=== PATIENT | male | born 1940 | race Caucasian/White ===

== ENCOUNTER 2018-09-12 16:57 | Emergency (ER) | payer MEDICARE, OTHER ==
[2018-09-12 17:25] VITALS: RESP 18
[2018-09-12 17:47] LABS: Anisocytosis Slight; Basophils # (A) 0.1 k/uL (0-0.2); Basophils % (A) 1 %; Eosinophils # (A) 0.4 k/uL (0-0.7); Eosinophils % (A) 3 %; HCT 41.5 % (39.0-53.0); HGB 12.6 gm/dL (13.0-17.5); Hypochromasia Slight; Lymphocytes # (A) 2.4 k/uL (1.0-4.8); Lymphocytes % (A) 21 %; MCH 31.3 pg (25.0-35.0); MCHC 30.4 g/dL (31.0-37.0); MCV 102.9 fL (80.0-100.0); Macrocytosis Moderate; Monocytes # (A) 0.7 k/uL (0-1.0); Monocytes % (A) 6 %; Neutrophils # (A) 7.6 k/uL (1.3-7.7); Neutrophils % (A) 65 %; Platelet Count 269 k/uL (150-450); RBC 4.04 m/uL (4.30-5.90); RDW 16.7 % (11.5-15.5); WBC 11.7 k/uL (3.8-10.6)
[2018-09-12 17:55] LABS: INR 3.2 (<1.2); Partial Thromboplastin Time 39.7 sec (22.0-30.0); Prothrombin Time 30.9 sec (9.0-12.0)
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
[2018-09-12 18:08] LABS: African American GFR (CKD) >90 (>60 ml/min/1.73 sqM); Anion Gap 9 mmol/L; Blood Urea Nitrogen 25 mg/dL (9-20); Calcium 9.2 mg/dL (8.4-10.2); Carbon Dioxide 28 mmol/L (22-30); Chloride 103 mmol/L (98-107); Glucose 99 mg/dL (74-99); Potassium 4.3 mmol/L (3.5-5.1); Sodium 140 mmol/L (137-145)
--- NOTE | 2018-09-12 18:14 | XR ---
EXAMINATION: XR chest 2V DATE AND TIME: 09/12/2018 5:45 PM CLINICAL INDICATION: PHH; Pain TECHNIQUE: Departmental protocol COMPARISON: None FINDINGS: The cardiac silhouette is moderately enlarged. Cardiac pacemaker and EKG leads noted. There is a reticular pattern of increased density bilaterally throughout the lungs, mild moderately s ilhouetting the pulmonary vasculature bilaterally. There are small bilateral pleural effusions eviden t, appearing greater in volume on the right. No pneumothorax. There is an ill-defined added opacity in the right upper lung zone measuring 3-4 cm. The skeletal structures and soft tissues are negative for acute findings. IMPRESSION: 1. Interstitial phase pulmonary edema, presumably cardiogenic etiology, with bilateral pleural effus ions. 2. Suspicious ill-defined 3-4 cm focal consolidative opacity within the right upper lung zone, for w hich six-week follow-up PA and lateral chest radiographs are recommended to prove resolution.
[2018-09-12] MEDS ORDERED: DEXTROSE 5% IN WATER 100 ML with AMIODARONE 150 MG IV ONE (18:41)
[2018-09-12] MEDS ORDERED: FUROSEMIDE 10 MG/ML 4 ML VIAL IV STA (19:06)
[2018-09-12 21:34] VITALS: BP 125/71; PULSE 72; TEMP 98.9
== END 2018-09-12 21:36 | disposition other institution (70) ==
LOC: EC 16:57
DX: T82.198A Other mechanical complication of other cardiac electronic device, initial encounter (principal); I11.0 Hypertensive heart disease with heart failure; I50.9 Heart failure, unspecified; I48.91 Unspecified atrial fibrillation; J44.9 Chronic obstructive pulmonary disease, unspecified; K21.9 Gastro-esophageal reflux disease without esophagitis; E78.5 Hyperlipidemia, unspecified; M10.9 Gout, unspecified; F32.9 Major depressive disorder, single episode, unspecified; Z95.810 Presence of automatic (implantable) cardiac defibrillator; Z95.818 Presence of other cardiac implants and grafts; Z87.891 Personal history of nicotine dependence; Z79.82 Long term (current) use of aspirin; Z79.01 Long term (current) use of anticoagulants; Z79.899 Other long term (current) drug therapy; Z88.6 Allergy status to analgesic agent; Z53.8 Procedure and treatment not carried out for other reasons
CPT/HCPCS: 36415; 93005; 83880; 80048; 84484; 85025; 85610; 85730; 71046; 99285; 96374; J1940

== ENCOUNTER 2021-10-20 23:25 | Inpatient (IN) | payer MEDICARE, OTHER ==
--- NOTE | 2021-10-21 00:06 | XR ---
EXAMINATION TYPE: XR chest 1V portable DATE OF EXAM: 10/20/2021 COMPARISON: NONE HISTORY: Chest pain. Short of breath TECHNIQUE: Single view FINDINGS: Heart is enlarged. There is pulmonary vascular congestion. There is some blunting of the co stophrenic angles and more on the right side. There is left axillary pacemaker. There are chest leads . IMPRESSION: There is pulmonary interstitial and airspace edema. This is consistent with congestive he art failure. Pleural effusions slightly increased and pulmonary congestion increased compared to old exam
[2021-10-21 00:08] LABS: Anisocytosis Slight; Basophils # (A) 0.1 k/uL (0-0.2); Basophils % (A) 0 %; Eosinophils # (A) 0.2 k/uL (0-0.7); Eosinophils % (A) 1 %; HCT 34.1 % (39.0-53.0); HGB 10.6 gm/dL (13.0-17.5); Hypochromasia Marked; Lymphocytes # (A) 2.7 k/uL (1.0-4.8); Lymphocytes % (A) 16 %; MCH 34.1 pg (25.0-35.0); MCHC 31.2 g/dL (31.0-37.0); Macrocytosis Marked; Mean Platelet Volume 10.3; Monocytes # (A) 0.6 k/uL (0-1.0); Monocytes % (A) 3 %; Neutrophils # (A) 13.2 k/uL (1.3-7.7); Neutrophils % (A) 76 %; Platelet Count 265 k/uL (150-450); RBC 3.12 m/uL (4.30-5.90); RDW 17.6 % (11.5-15.5); WBC 17.3 k/uL (3.8-10.6)
[2021-10-21 00:15] LABS: MCV 109.4 fL (80.0-100.0)
[2021-10-21 00:16] LABS: INR 1.2 (<1.2); Partial Thromboplastin Time 27.7 sec (22.0-30.0); Prothrombin Time 12.8 sec (9.0-12.0)
[2021-10-21 00:20] LABS: ALT 36 U/L (4-49); AST 57 U/L (17-59); African American GFR (CKD) >90 (>60 ml/min/1.73 sqM); Albumin 3.8 g/dL (3.5-5.0); Alkaline Phosphatase 194 U/L (38-126); Anion Gap 7 mmol/L; Blood Urea Nitrogen 16 mg/dL (9-20); Calcium 9.2 mg/dL (8.4-10.2); Carbon Dioxide 27 mmol/L (22-30); Chloride 105 mmol/L (98-107); Glucose 115 mg/dL (74-99); Non-African American GFR(CKD) 85 (>60 ml/min/1.73 sqM); Potassium 4.5 mmol/L (3.5-5.1); Sodium 139 mmol/L (137-145); Total Bilirubin 0.6 mg/dL (0.2-1.3); Total Protein 6.1 g/dL (6.3-8.2)
--- NOTE | 2021-10-21 01:04 | ED ---
SOB HPI - General Chief Complaint: Shortness of Breath Stated Complaint: DANIEL Time Seen by Provider: 10/20/21 23:51 Source: EMS Mode of arrival: EMS Limitations: no limitations - History of Present Illness Initial Comments: This patient is an 81-year-old man arriving by ambulance to be evaluated for shortness of breath. The patient's recent history notable for having been at [facility] where he usually gets his care for pneumonia. He states that that cleared up and he was at home doing relatively well until earlier today. He started having a little more cough. He tried to sleep and then the shortness of breath became much worse. His breathing is worse lying back. Patient has had some cough with clear sputum. Patient has not had chest pain. He has not noted fever or chills. No leg pain. No change in bowel movements or urination. MD Complaint: shortness of breath, cough -: hour(s) Consistency: constant Improves With: nothing, upright position Worsens With: lying flat Known History Of: COPD Associated Symptoms: cough Treatments Prior to Arrival: oxygen, NIPPV - Related Data Home Oxygen Therapy: No Home Medications Medication Instructions Recorded Confirmed Albuterol Inhaler [Ventolin Hfa 1 - 2 puff INHALATION RT-Q6H PRN 09/12/18 09/12/18 Inhaler] Albuterol Nebulized [Ventolin 2.5 mg INHALATION RT-QID PRN 09/12/18 09/12/18 Nebulized] Amitriptyline HCl [Elavil] 25 mg PO HS 09/12/18 09/12/18 Ascorbic Acid [Vitamin C] 1,500 mg PO DAILY 09/12/18 09/12/18 Aspirin EC [Ecotrin Low Dose] 81 mg PO DAILY 09/12/18 09/12/18 Atorvastatin [Lipitor] 80 mg PO HS 09/12/18 09/12/18 Furosemide [Lasix] 80 mg PO DAILY 09/12/18 09/12/18 Glucosamine Sulfate 500 mg PO DAILY 09/12/18 09/12/18 Ipratropium Nebulized [Atrovent 0.5 mg INHALATION RT-BID PRN 09/12/18 09/12/18 Nebulized 0.2 MG/ML] Magnesium Gluconate [Magonate] 500 mg PO BID 09/12/18 09/12/18 Methocarbamol [Robaxin] 500 mg PO DAILY 09/12/18 09/12/18 Omeprazole 40 mg PO Q12H 09/12/18 09/12/18 Potassium Chloride ER [K-Dur 20] 20 meq PO Q12H 09/12/18 09/12/18 Ranitidine HCl [Zantac] 150 mg PO BID 09/12/18 09/12/18 Sertraline [Zoloft] 50 mg PO HS 09/12/18 09/12/18 Sucralfate [Carafate] 1 gm PO ACHS 09/12/18 09/12/18 Vitamin B Complex 1 cap PO DAILY 09/12/18 09/12/18 Vitamin E (Dl,Tocopheryl Acet) 400 unit PO DAILY 09/12/18 09/12/18 [Vitamin E] Vits A,C,E/Lutein/Minerals 1 tab PO DAILY 09/12/18 09/12/18 [Ocuvite with Lutein Tablet] Warfarin [Coumadin] 5 mg PO SUMOWEFR 09/12/18 09/12/18 Warfarin [Coumadin] 7.5 mg PO TUTHSA 09/12/18 09/12/18 allopurinoL [Zyloprim] 300 mg PO DAILY 09/12/18 09/12/18 Allergies Allergy/AdvReac Type Severity Reaction Status Date / Time naproxen [From Naprosyn] AdvReac gi bleed Verified 09/12/18 18:36 Review of Systems ROS Statement: Those systems with pertinent positive or pertinent negative responses have been documented in the HPI. ROS Other: All systems not noted in ROS Statement are negative. Constitutional: Denies: fever, chills, weakness Respiratory: Reports: cough, dyspnea, wheezes. Denies: hemoptysis, stridor Cardiovascular: Reports: orthopnea. Denies: chest pain, palpitations, dyspnea on exertion, syncope Gastrointestinal: Denies: abdominal pain, vomiting, diarrhea Genitourinary: Denies: dysuria, hematuria Musculoskeletal: Denies: back pain Skin: Denies: rash Neurological: Denies: headache, weakness, numbness Past Medical History Past Medical History: Atrial Fibrillation, COPD, GERD/Reflux, Hyperlipidemia, Hypertension, Memory Impairment Additional Past Medical History / Comment(s): cardiac arrest, gout Past Surgical History: Heart Catheterization, Orthopedic Surgery Additional Past Surgical History / Comment(s): aicd Past Psychological History: Depression Past Alcohol Use History: Occasional Past Drug Use History: None Reported General Exam General appearance: alert, in distress Head exam: Present: atraumatic, normocephalic Eye exam: Present: normal appearance. Absent: scleral icterus, conjunctival injection Neck exam: Present: normal inspection Respiratory exam: Present: respiratory distress, rales, accessory muscle use. Absent: wheezes, rhonchi, stridor, decreased breath sounds Cardiovascular Exam: Present: regular rate, normal rhythm, normal heart sounds. Absent: systolic murmur, diastolic murmur, rubs, gallop GI/Abdominal exam: Present: soft. Absent: distended, tenderness, guarding, rebound, rigid, mass Extremities exam: Present: normal inspection, normal capillary refill. Absent: pedal edema, calf tenderness Back exam: Present: normal inspection. Absent: CVA tenderness (R), CVA tenderness (L) Neurological exam: Present: alert Skin exam: Present: warm, dry, intact, normal color. Absent: rash Course Vital Signs 10/20/21 10/20/21 10/20/21 23:25 23:31 23:41 Temperature 97 F L Pulse Rate 93 Respiratory 20 Rate Blood Pressure 115/69 O2 Sat by Pulse 91 L Oximetry Fraction of 100 Inspired Oxygen (FIO2) 10/20/21 10/21/21 10/21/21 23:49 04:03 04:55 Temperature Pulse Rate 85 Respiratory Rate Blood Pressure 115/78 O2 Sat by Pulse 99 Oximetry Fraction of 100 70 Inspired Oxygen (FIO2) Medical Decision Making - Lab Data Result diagrams: 10/20/21 23:55 10/20/21 23:55 Lab Results 10/20/21 10/20/21 10/20/21 Range/Units 23:55 23:55 23:55 WBC 17.3 H (3.8-10.6) k/uL RBC 3.12 L (4.30-5.90) m/uL Hgb 10.6 L (13.0-17.5) gm/dL Hct 34.1 L (39.0-53.0) % MCV 109.4 H (80.0-100.0) fL MCH 34.1 (25.0-35.0) pg MCHC 31.2 (31.0-37.0) g/dL RDW 17.6 H (11.5-15.5) % Plt Count 265 (150-450) k/uL MPV 10.3 Neutrophils % 76 % Lymphocytes % 16 % Monocytes % 3 % Eosinophils % 1 % Basophils % 0 % Neutrophils # 13.2 H (1.3-7.7) k/uL Lymphocytes # 2.7 (1.0-4.8) k/uL Monocytes # 0.6 (0-1.0) k/uL Eosinophils # 0.2 (0-0.7) k/uL Basophils # 0.1 (0-0.2) k/uL Hypochromasia Marked Anisocytosis Slight Macrocytosis Marked A PT 12.8 H (9.0-12.0) sec INR 1.2 H (<1.2) APTT 27.7 (22.0-30.0) sec Sodium 139 (137-145) mmol/L Potassium 4.5 (3.5-5.1) mmol/L Chloride 105 (98-107) mmol/L Carbon Dioxide 27 (22-30) mmol/L Anion Gap 7 mmol/L BUN 16 (9-20) mg/dL Creatinine 0.80 (0.66-1.25) mg/dL Est GFR (CKD-EPI)AfAm >90 (>60 ml/min/1.73 sqM) Est GFR (CKD-EPI)NonAf 85 (>60 ml/min/1.73 sqM) Glucose 115 H (74-99) mg/dL Plasma Lactic Acid Gordo (0.7-2.0) mmol/L Calcium 9.2 (8.4-10.2) mg/dL Total Bilirubin 0.6 (0.2-1.3) mg/dL AST 57 (17-59) U/L ALT 36 (4-49) U/L Alkaline Phosphatase 194 H (38-126) U/L Troponin I (0.000-0.034) ng/mL NT-Pro-B Natriuret Pep pg/mL Total Protein 6.1 L (6.3-8.2) g/dL Albumin 3.8 (3.5-5.0) g/dL 10/20/21 10/20/21 10/20/21 Range/Units 23:55 23:55 23:55 WBC (3.8-10.6) k/uL RBC (4.30-5.90) m/uL Hgb (13.0-17.5) gm/dL Hct (39.0-53.0) % MCV (80.0-100.0) fL MCH (25.0-35.0) pg MCHC (31.0-37.0) g/dL RDW (11.5-15.5) % Plt Count (150-450) k/uL MPV Neutrophils % % Lymphocytes % % Monocytes % % Eosinophils % % Basophils % % Neutrophils # (1.3-7.7) k/uL Lymphocytes # (1.0-4.8) k/uL Monocytes # (0-1.0) k/uL Eosinophils # (0-0.7) k/uL Basophils # (0-0.2) k/uL Hypochromasia Anisocytosis Macrocytosis PT (9.0-12.0) sec INR (<1.2) APTT (22.0-30.0) sec Sodium (137-145) mmol/L Potassium (3.5-5.1) mmol/L Chloride (98-107) mmol/L Carbon Dioxide (22-30) mmol/L Anion Gap mmol/L BUN (9-20) mg/dL Creatinine (0.66-1.25) mg/dL Est GFR (CKD-EPI)AfAm (>60 ml/min/1.73 sqM) Est GFR (CKD-EPI)NonAf (>60 ml/min/1.73 sqM) Glucose (74-99) mg/dL Plasma Lactic Acid Gordo 1.5 (0.7-2.0) mmol/L Calcium (8.4-10.2) mg/dL Total Bilirubin (0.2-1.3) mg/dL AST (17-59) U/L ALT (4-49) U/L Alkaline Phosphatase (38-126) U/L Troponin I <0.012 (0.000-0.034) ng/mL NT-Pro-B Natriuret Pep 2740 pg/mL Total Protein (6.3-8.2) g/dL Albumin (3.5-5.0) g/dL - EKG Data -: EKG Interpreted by Ri EKG shows normal: axis (Borderline left axis), intervals (Normal) Interpretation: nonspecific ST-T wave changes, other (Underlying rhythm appears to be atrial fibrillation with occasional PVC) Disposition
[2021-10-21] MEDS ORDERED: ALBUTEROL NEBULIZED 2.5 MG/3 ML INHALATION PRN (06:17)
[2021-10-21] MEDS: ASPIRIN 81 MG PO SCH (09:34)
[2021-10-21] MEDS: FAMOTIDINE 20 MG TAB PO SCH ×2 (09:34→19:59)
[2021-10-21] MEDS: POTASSIUM CHLORIDE ER 20 MEQ TAB.ER PO SCH ×2 (09:34→19:59)
[2021-10-21] MEDS: PANTOPRAZOLE 40 MG TABLET PO SCH ×2 (09:34→18:47)
[2021-10-21] MEDS: FUROSEMIDE 10 MG/ML 4 ML VIAL IV SCH ×2 (09:34→18:48)
[2021-10-21] MEDS: MAGNESIUM OXIDE 400 MG TAB PO SCH ×2 (09:35→19:59)
[2021-10-21] MEDS: SUCRALFATE 1 GM TAB PO SCH ×4 (11:15→19:59)
[2021-10-21 12:06] LABS: Appearance,Urine Clear (Clear); Bilirubin,Urine Negative (Negative); Blood,Urine Negative (Negative); Color,Urine Yellow; Glucose,Urine (UA) Negative (Negative); Hyaline Casts,Urine 3 /lpf (0-2); Ketones,Urine Negative (Negative); Leukocyte Esterase,Urine Trace (Negative); Mucus,Urine Rare /hpf; Nitrite,Urine Negative (Negative); PH, Urine 6.5 (5.0-8.0); Protein,Urine Trace (Negative); RBC,Urine <1 /hpf (0-5); Specific Gravity,Urine 1.017 (1.001-1.035); Squamous Epithelial Cell,Urine <1 /hpf (0-4); Urobilinogen,Urine <2.0 mg/dL (<2.0); WBC,Urine 1 /hpf (0-5)
[2021-10-21] MEDS ORDERED: AZITHROMYCIN 500 MG TAB PO STA (13:11)
--- NOTE | 2021-10-21 15:55 | P.CRDCN ---
History of Present Illness Consult date: 10/21/21 Chief complaint: Shortness of breath History of present illness: This is an 81-year-old gentleman with a known past medical history who presented to the emergency department not feeling well. The patient is a poor historian. He was very lethargic when he was seen and examined. The patient was brought apparently by ambulance. According to the chart he was not feeling well where he was experiencing symptoms of being tired and fatigued and has no energy and lately for the last few days he has been more short of breath and the shortness of breath was associated with cough. No evidence that the patient was experiencing any fever or chills. No evidence that he was experiencing chest pain or chest discomfort. He underwent a workup in the emergency department and he was diagnosed with heart failure. He was started on Lasix IV. When the patient was seen and examined he doesn't look in any overt congestive heart failure. He underwent an NT proBNP which came in to be around 2000. The chest x-ray showed findings consistent with pulmonary vascular congestions. The initial evaluation of the EKG showed atrial fibrillation but further local showed that the EKG showing what it seems to be multifocal atrial tachycardia. He also was started on antibiotic for possible underlying pneumonia. Most noticeable that the examination revealed diminished breathing sounds bilaterally with very harsh systolic murmur at the right and left upper sternal border. We will obtain an echocardiogram for further clarification Past Medical History Past Medical History: Atrial Fibrillation, COPD, GERD/Reflux, Hyperlipidemia, Hypertension, Memory Impairment Additional Past Medical History / Comment(s): cardiac arrest, gout Past Surgical History: Heart Catheterization, Orthopedic Surgery Additional Past Surgical History / Comment(s): aicd Past Psychological History: Depression Past Alcohol Use History: Occasional Past Drug Use History: None Reported Medications and Allergies Home Medications Medication Instructions Recorded Confirmed Type Atorvastatin [Lipitor] 80 mg PO HS 09/12/18 10/21/21 History Furosemide [Lasix] 80 mg PO DAILY 09/12/18 10/21/21 History Omeprazole 40 mg PO BID 09/12/18 10/21/21 History Potassium Chloride ER [K-Dur 20] 20 meq PO BID 09/12/18 10/21/21 History Sertraline [Zoloft] 50 mg PO HS 09/12/18 10/21/21 History allopurinoL [Zyloprim] 300 mg PO DAILY 09/12/18 10/21/21 History Clopidogrel [Plavix] 75 mg PO DAILY 10/21/21 10/21/21 History Metoprolol Succinate [Metoprolol 25 mg PO DAILY 10/21/21 10/21/21 History Succinate ER] QUEtiapine [SEROquel] 12.5 mg PO HS 10/21/21 10/21/21 History Vit C/E/Zn/Coppr/Lutein/Zeaxan 1 cap PO BID 10/21/21 10/21/21 History [Preservision Areds 2 Softgel] Allergies Allergy/AdvReac Type Severity Reaction Status Date / Time naproxen [From Naprosyn] AdvReac gi bleed Verified 10/21/21 11:25 Physical Exam Vitals: Vital Signs Temp Pulse Resp BP Pulse Ox FiO2 10/21/21 15:02 94 L 10/21/21 15:00 62 20 90/50 96 10/21/21 14:03 65 16 112/50 96 10/21/21 12:51 68 18 112/55 96 10/21/21 11:18 78 20 112/58 99 10/21/21 11:14 40 10/21/21 09:46 98.3 F 86 18 111/56 98 10/21/21 08:20 70 10/21/21 08:00 90 22 120/85 96 10/21/21 04:55 85 115/78 99 10/21/21 04:03 70 10/20/21 23:49 100 10/20/21 23:41 91 L 10/20/21 23:31 97 F L 93 20 115/69 10/20/21 23:25 100 Intake and Output 10/21/21 10/21/21 10/21/21 06:59 14:59 22:59 Other: Weight 79.379 kg - Constitutional General appearance: no acute distress - Respiratory Respiratory: bilateral: diminished - Cardiovascular Rhythm: irregularly irregular Heart sounds: normal: S1, S2 Results 10/20/21 23:55 10/20/21 23:55 Cardiac Enzymes 10/20/21 10/20/21 10/21/21 Range/Units 23:55 23:55 06:53 AST 57 (17-59) U/L Troponin I <0.012 <0.012 (0.000-0.034) ng/mL 10/21/21 Range/Units 09:53 AST (17-59) U/L Troponin I <0.012 (0.000-0.034) ng/mL Coagulation 10/20/21 Range/Units 23:55 PT 12.8 H (9.0-12.0) sec APTT 27.7 (22.0-30.0) sec CBC 10/20/21 Range/Units 23:55 WBC 17.3 H (3.8-10.6) k/uL RBC 3.12 L (4.30-5.90) m/uL Hgb 10.6 L (13.0-17.5) gm/dL Hct 34.1 L (39.0-53.0) % Plt Count 265 (150-450) k/uL Comprehensive Metabolic Panel 10/20/21 Range/Units 23:55 Sodium 139 (137-145) mmol/L Potassium 4.5 (3.5-5.1) mmol/L Chloride 105 (98-107) mmol/L Carbon Dioxide 27 (22-30) mmol/L BUN 16 (9-20) mg/dL Creatinine 0.80 (0.66-1.25) mg/dL Glucose 115 H (74-99) mg/dL Calcium 9.2 (8.4-10.2) mg/dL AST 57 (17-59) U/L ALT 36 (4-49) U/L Alkaline Phosphatase 194 H (38-126) U/L Total Protein 6.1 L (6.3-8.2) g/dL Albumin 3.8 (3.5-5.0) g/dL Current Medications Generic Name Dose Route Start Last Admin Trade Name Freq PRN Reason Stop Dose Admin Albuterol Sulfate 2.5 mg 10/21/21 06:17 Albuterol Nebulized 2.5 Mg/3 Ml INHALATION RT-QID PRN Shortness Of Breath Aspirin 81 mg 10/21/21 09:00 10/21/21 09:34 Aspirin 81 Mg PO 81 mg DAILY JENNIFER Administration Azithromycin 250 mg 10/22/21 09:00 Azithromycin 250 Mg Tab PO 10/24/21 09:01 DAILY [facility] Protocol Famotidine 20 mg 10/21/21 09:00 10/21/21 09:34 Famotidine 20 Mg Tab PO 20 mg BID JENNIFER Administration Furosemide 40 mg 10/21/21 07:00 10/21/21 09:34 Furosemide 10 Mg/Ml 4 Ml Vial IV 40 mg Q12H JENNIFER Administration Ceftriaxone Sodium 2 gm/ 50 mls @ 100 mls/hr 10/21/21 13:15 10/21/21 13:57 Sodium Chloride IVPB 100 mls/hr Q24HR JENNIFER Administration Protocol Magnesium Oxide 400 mg 10/21/21 09:00 10/21/21 09:35 Magnesium Oxide 400 Mg Tab PO 400 mg BID JENNIFER Administration Pantoprazole Sodium 40 mg 10/21/21 07:30 10/21/21 09:34 Pantoprazole 40 Mg Tablet PO 40 mg Q12H JENNIFER Administration Potassium Chloride 20 meq 10/21/21 09:00 10/21/21 09:34 Potassium Chloride Er 20 Meq Tab.Er PO 20 meq Q12H JENNIFER Administration Sodium Chloride 10 ml 10/21/21 09:00 10/21/21 09:35 Sodium Chloride 0.9% Flush 10 Ml Syringe IV 10 ml BID JENNIFER Administration Sucralfate 1 gm 10/21/21 07:30 10/21/21 13:37 Sucralfate 1 Gm Tab PO Not Given ACHS JENNIFER Intake and Output 10/21/21 10/21/21 10/21/21 06:59 14:59 22:59 Other: Weight 79.379 kg 10/20/21 23:55 10/20/21 23:55 Assessment and Plan Assessment: Assessment #1 possible underlying pneumonia #2 cardiac arrhythmia, atrial fibrillation versus multifocal atrial tachycardia #3 cardiac murmur was diminished in the intensity of S2 #3 multiple comorbid conditions Plan #1 continue the current medical regimen #2 obtain an echo to evaluate the ejection fraction as well as the intracardiac valves #3 continue IV diuretics for additional 24 hours #4 continue antibiotic #5 follow-up with the patient
--- NOTE | 2021-10-21 18:08 | P.HPIM ---
History of Present Illness H&P Date: 10/21/21 Chief Complaint: Shortness of breath 81-year-old man arriving by ambulance to be evaluated for shortness of breath. The patient's recent history notable for having been at [facility] where he usually gets his care for pneumonia. He states that that cleared up and he was at home doing relatively well until earlier today. He started having a little more cough. He tried to sleep and then the shortness of breath became much worse. His breathing is worse lying back. Patient has had some cough with clear sputum. Patient has not had chest pain. He has not noted fever or chills. No leg pain. No change in bowel movements or urination. Workup in the emergency department and he was diagnosed with heart failure. He was started on Lasix IV. When the patient was seen and examined he doesn't look in any overt congestive heart failure. He underwent an NT proBNP which came in to be around 2000. The chest x-ray showed findings consistent with pulmonary vascular congestions. The initial evaluation of the EKG showed atrial fibrillation but further local showed that the EKG showing what it seems to be multifocal atrial tachycardia. He also was started on antibiotic for possible underlying pneumonia. Most noticeable that the examination revealed diminished breathing sounds bilaterally with very harsh systolic murmur at the right and left upper sternal border. We will obtain an echocardiogram for further clarification Review of Systems REVIEW OF SYSTEMS: CONSTITUTIONAL: No fever, no malaise, no fatigue. HEENT: No recent visual problems or hearing problems. Denied any sore throat. CARDIOVASCULAR: No chest pain, orthopnea, PND, no palpitations, no syncope. PULMONARY: No shortness of breath, no cough, no hemoptysis. GASTROINTESTINAL: No diarrhea, no nausea, no vomiting, no abdominal pain. NEUROLOGICAL: No headaches, no weakness, no numbness. HEMATOLOGICAL: Denies any bleeding or petechiae. GENITOURINARY: Denies any burning micturition, frequency, or urgency. MUSCULOSKELETAL/RHEUMATOLOGICAL: Denies any joint pain, swelling, or any muscle pain. ENDOCRINE: Denies any polyuria or polydipsia. The rest of the 14-point review of systems is negative. Past Medical History Past Medical History: Atrial Fibrillation, COPD, GERD/Reflux, Hyperlipidemia, Hypertension, Memory Impairment Additional Past Medical History / Comment(s): cardiac arrest, gout Past Surgical History: Heart Catheterization, Orthopedic Surgery Additional Past Surgical History / Comment(s): aicd Past Psychological History: Depression Past Alcohol Use History: Occasional Past Drug Use History: None Reported - Past Family History Father Family Medical History: Diabetes Mellitus Mother Additional Family Medical History / Comment(s): brain bleed Medications and Allergies Home Medications Medication Instructions Recorded Confirmed Type Atorvastatin [Lipitor] 80 mg PO HS 09/12/18 10/21/21 History Furosemide [Lasix] 80 mg PO DAILY 09/12/18 10/21/21 History Omeprazole 40 mg PO BID 09/12/18 10/21/21 History Potassium Chloride ER [K-Dur 20] 20 meq PO BID 09/12/18 10/21/21 History Sertraline [Zoloft] 50 mg PO HS 09/12/18 10/21/21 History allopurinoL [Zyloprim] 300 mg PO DAILY 09/12/18 10/21/21 History Clopidogrel [Plavix] 75 mg PO DAILY 10/21/21 10/21/21 History Metoprolol Succinate [Metoprolol 25 mg PO DAILY 10/21/21 10/21/21 History Succinate ER] QUEtiapine [SEROquel] 12.5 mg PO HS 10/21/21 10/21/21 History Vit C/E/Zn/Coppr/Lutein/Zeaxan 1 cap PO BID 10/21/21 10/21/21 History [Preservision Areds 2 Softgel] Allergies Allergy/AdvReac Type Severity Reaction Status Date / Time naproxen [From Naprosyn] AdvReac gi bleed Verified 10/21/21 11:25 Physical Exam Vitals: Vital Signs Temp Pulse Resp BP Pulse Ox FiO2 10/21/21 08:20 70 10/21/21 04:55 85 115/78 99 10/21/21 04:03 70 10/20/21 23:49 100 10/20/21 23:41 91 L 10/20/21 23:31 97 F L 93 20 115/69 10/20/21 23:25 100 Intake and Output 10/20/21 10/21/21 10/21/21 22:59 06:59 14:59 Other: Weight 79.379 kg PHYSICAL EXAMINATION: GENERAL: The patient is alert and oriented x3, not in any acute distress. Well developed, well nourished. HEENT: Pupils are round and equally reacting to light. EOMI. No scleral icterus. No conjunctival pallor. Normocephalic, atraumatic. No pharyngeal erythema. No thyromegaly. CARDIOVASCULAR: S1 and S2 present. No murmurs, rubs, or gallops. PULMONARY: Chest is clear to auscultation, no wheezing or crackles. ABDOMEN: Soft, nontender, nondistended, normoactive bowel sounds. No palpable organomegaly. MUSCULOSKELETAL: No joint swelling or deformity. EXTREMITIES: No cyanosis, clubbing, or pedal edema. NEUROLOGICAL: Gross neurological examination did not reveal any focal deficits. SKIN: No rashes. Results CBC & Chem 7: 10/20/21 23:55 10/20/21 23:55 Labs: Abnormal Lab Results - Last 24 Hours (Table) 10/20/21 10/20/21 10/20/21 Range/Units 23:55 23:55 23:55 WBC 17.3 H (3.8-10.6) k/uL RBC 3.12 L (4.30-5.90) m/uL Hgb 10.6 L (13.0-17.5) gm/dL Hct 34.1 L (39.0-53.0) % MCV 109.4 H (80.0-100.0) fL RDW 17.6 H (11.5-15.5) % Neutrophils # 13.2 H (1.3-7.7) k/uL Macrocytosis Marked A PT 12.8 H (9.0-12.0) sec INR 1.2 H (<1.2) Glucose 115 H (74-99) mg/dL Alkaline Phosphatase 194 H (38-126) U/L Total Protein 6.1 L (6.3-8.2) g/dL Assessment and Plan Assessment: 1. Acute exacerbation CHF - Patient has been placed on Lasix 40 mg IV every 12 hours; we will monitor strict ISABEL's, daily weights, low salt and fluid restricted diet - Recommend 2-D echo - Cardiology is consulted 2. Possible underlying pneumonia; patient has been placed on IV Rocephin and azithromycin; we will monitor CBC, CRP antral calcitonin; order blood culture and sputum culture 3. Cardiac arrhythmia; atrial fibrillation versus MAT; patient has history of atrial fibrillation; patient is currently rate controlled on metoprolol 25 mg daily; not on anticoagulation therapy 4. Marked leukocytosis; likely related to possible pneumonia; monitor CBC; we will plan to change antibiotics and consult ID if WBC continues to trend up 5. Hypertension; metoprolol 25 mg daily 6. Hyperlipidemia; Lipitor 80 mg by mouth daily at bedtime 7. COPD; not in exacerbation; continue with home inhaler therapy 8. Gout; T new with allopurinol 300 mg daily 9. Depression/insomnia; Zoloft 50 mg by mouth daily at bedtime, Seroquel 12.5 mg daily at bedtime
[2021-10-21] MEDS: ATORVASTATIN 80 MG TAB PO SCH (19:59)
[2021-10-21] MEDS: SERTRALINE 50 MG TAB PO SCH (19:59)
[2021-10-21] MEDS: QUEtiapine 25 MG TAB PO SCH (19:59)
--- NOTE | 2021-10-21 20:48 | P.CONS ---
History of Present Illness - Reason for Consult Consult date: 10/21/21 Leukocytosis Requesting physician: Jairo Bryan - Chief Complaint Shortness of breath and cough x few days - History of Present Illness Patient is a 81-year-old male with a past medical history sniffing and for hypertension hyperlipidemia atrial fibrillation coronary artery disease presenting to the hospital for evaluation of increasing shortness of breath that apparently has been getting worse for the last few days patient also have a cough and is bringing up some purulent sputum denies having hemoptysis patient denies any pleuritic chest pain patient denies any nausea no vomiting no choking on the food no abdominal pain no diarrhea patient on presentation to the hospital was afebrile and no fever have been recorded subsequently patient was noted to be hypoxic and is currently requiring 4 L nasal cannula patient did have white count of 17.3 with a left shift kidney function has been normal liver enzymes are normal urine has been negative COVID testing was negative patient did have a chest x-ray pulmonary sedation any airspace edema concerning for CHF infectious disease was consulted for further management of antibiotic therapy especially his elevated white count Review of Systems Positive point has been mentioned in the HPI rest of the systems are negative Past Medical History Past Medical History: Atrial Fibrillation, COPD, GERD/Reflux, Hyperlipidemia, Hypertension, Memory Impairment Additional Past Medical History / Comment(s): cardiac arrest, gout Past Surgical History: Heart Catheterization, Orthopedic Surgery Additional Past Surgical History / Comment(s): aicd Past Psychological History: Depression Past Alcohol Use History: Occasional Past Drug Use History: None Reported - Past Family History Father Family Medical History: Diabetes Mellitus Mother Additional Family Medical History / Comment(s): brain bleed Medications and Allergies Home Medications Medication Instructions Recorded Confirmed Type Atorvastatin [Lipitor] 80 mg PO HS 09/12/18 10/21/21 History Furosemide [Lasix] 80 mg PO DAILY 09/12/18 10/21/21 History Omeprazole 40 mg PO BID 09/12/18 10/21/21 History Potassium Chloride ER [K-Dur 20] 20 meq PO BID 09/12/18 10/21/21 History Sertraline [Zoloft] 50 mg PO HS 09/12/18 10/21/21 History allopurinoL [Zyloprim] 300 mg PO DAILY 09/12/18 10/21/21 History Clopidogrel [Plavix] 75 mg PO DAILY 10/21/21 10/21/21 History Metoprolol Succinate [Metoprolol 25 mg PO DAILY 10/21/21 10/21/21 History Succinate ER] QUEtiapine [SEROquel] 12.5 mg PO HS 10/21/21 10/21/21 History Vit C/E/Zn/Coppr/Lutein/Zeaxan 1 cap PO BID 10/21/21 10/21/21 History [Preservision Areds 2 Softgel] Allergies Allergy/AdvReac Type Severity Reaction Status Date / Time naproxen [From Naprosyn] AdvReac gi bleed Verified 10/21/21 11:25 Physical Exam Vitals: Vital Signs Temp Pulse Resp BP Pulse Ox FiO2 10/21/21 11:18 78 20 112/58 99 10/21/21 11:14 40 10/21/21 09:46 98.3 F 86 18 111/56 98 10/21/21 08:20 70 10/21/21 04:55 85 115/78 99 10/21/21 04:03 70 10/20/21 23:49 100 10/20/21 23:41 91 L 10/20/21 23:31 97 F L 93 20 115/69 10/20/21 23:25 100 Intake and Output 10/20/21 10/21/21 10/21/21 22:59 06:59 14:59 Other: Weight 79.379 kg GENERAL DESCRIPTION: Elderly male lying in bed, no distress. No tachypnea or accessory muscle of respiration use. HEENT: Shows Pallor , no scleral icterus. Oral mucous membrane is dry. No pharyngeal erythema or thrush NECK: Trachea central, no thyromegaly. LUNGS: Unlabored breathing. Decreased breath sounds at the base. No wheeze or crackle. HEART: S1, S2, regular rate and rhythm. No loud murmur ABDOMEN: Soft, no tenderness , guarding or rigidity, no organomegaly EXTREMITIES: No edema of feet. SKIN: No rash, no masses palpable. NEUROLOGICAL: The patient is awake, alert, oriented x3, mood and affect normal. Results CBC & Chem 7: 10/20/21 23:55 10/20/21 23:55 Labs: Abnormal Lab Results - Last 24 Hours (Table) 10/20/21 10/20/21 10/20/21 Range/Units 23:55 23:55 23:55 WBC 17.3 H (3.8-10.6) k/uL RBC 3.12 L (4.30-5.90) m/uL Hgb 10.6 L (13.0-17.5) gm/dL Hct 34.1 L (39.0-53.0) % MCV 109.4 H (80.0-100.0) fL RDW 17.6 H (11.5-15.5) % Neutrophils # 13.2 H (1.3-7.7) k/uL Macrocytosis Marked A PT 12.8 H (9.0-12.0) sec INR 1.2 H (<1.2) Glucose 115 H (74-99) mg/dL Alkaline Phosphatase 194 H (38-126) U/L Total Protein 6.1 L (6.3-8.2) g/dL Urine Protein (Negative) Ur Leukocyte Esterase (Negative) Hyaline Casts (0-2) /lpf Urine Mucus (None) /hpf 10/21/21 Range/Units 11:06 WBC (3.8-10.6) k/uL RBC (4.30-5.90) m/uL Hgb (13.0-17.5) gm/dL Hct (39.0-53.0) % MCV (80.0-100.0) fL RDW (11.5-15.5) % Neutrophils # (1.3-7.7) k/uL Macrocytosis PT (9.0-12.0) sec INR (<1.2) Glucose (74-99) mg/dL Alkaline Phosphatase (38-126) U/L Total Protein (6.3-8.2) g/dL Urine Protein Trace H (Negative) Ur Leukocyte Esterase Trace H (Negative) Hyaline Casts 3 H (0-2) /lpf Urine Mucus Rare H (None) /hpf Assessment and Plan (1) Leukocytosis Current Visit: Yes Status: Acute Code(s): D72.829 - ELEVATED WHITE BLOOD CELL COUNT, UNSPECIFIED SNOMED Code(s): 797193767 Plan: 1patient with elevated white count in this patient presented to hospital with increasing shortness of breath the patient also have a cough and bringing some purulent sputum concerning for possible pneumonia. 2we will obtain a sputum for gram stain and culture and check a procalcitonin level. 3we will empirically add Rocephin and Zithromax while awaiting further work-up to be completed. We will follow on clinical condition and cultures to further adjust medication if needed Thank you for this consultation will follow this patient along with you Time with Patient: Greater than 30
[2021-10-22] MEDS: SUCRALFATE 1 GM TAB PO SCH ×4 (06:37→21:15)
[2021-10-22] MEDS: PANTOPRAZOLE 40 MG TABLET PO SCH ×2 (06:37→18:57)
[2021-10-22] MEDS: FUROSEMIDE 10 MG/ML 4 ML VIAL IV SCH (06:37)
--- NOTE | 2021-10-22 08:16 | P.PN ---
Subjective Progress Note Date: 10/22/21 Principal diagnosis: Shortness of breath This is an 81-year-old gentleman who sees a police crime scene technician at home [facility] who is somewhat a poor historian with a past medical history significant for permanent pacemaker as well as history of Collier permanent atrial fibrillation as well as multiple comorbid conditions presented to the hospital with shortness of breath. We consulted to see the patient mainly for the management of heart failure. When the patient was seen in the emergency department yesterday he did not look in overt heart failure. The picture was more consistent with pneumonia. The patient was kept on IV Lasix for the following day. An echocardiogram was ordered. On examination he was found to have harsh systolic murmur at the right upper sternal border with severe decrease in the intensity of S2. His NT proBNP came in to be elevated at 2000. The chest x-ray showed findings consistent with pulmonary vascular congestions. But clinically the patient was not in overt failure. The EKG showed an atrial fibrillation with a differential diagnosis of multifocal atrial tachycardia. The patient stated that he underwent in the past placement of the watchman device. The patient was seen this morning. His mentation somewhat better. He continues to be poor historian. He stated that his shortness of breath has improved. His pressure continues to be marginal. I'm going to decrease the dose of Lasix in the light of margin a low blood pressure. Currently he is on antibiotic for possible underlying pneumonia. An echocardiogram is in process to be done. Further recommendation to follow. Objective - Vital Signs Vital signs: Vital Signs Temp 98 F 10/22/21 03:31 Pulse 61 10/22/21 03:31 Resp 20 10/22/21 03:35 BP 92/52 10/22/21 03:31 Pulse Ox 98 10/22/21 03:35 FiO2 40 10/21/21 11:14 Intake & Output 10/21/21 10/22/21 10/22/21 18:59 06:59 18:59 Intake Total 1080 120 Output Total 1400 925 Balance -1400 155 120 Weight 79.379 kg 85.5 kg Intake: Oral 1080 120 Output: Urine 1400 925 Other: Voiding Method Urinal Urinal # Voids 1 - Constitutional General appearance: Present: no acute distress - Respiratory Respiratory: bilateral: diminished - Cardiovascular Rhythm: irregularly irregular Heart sounds: normal: S1, S2 - Labs CBC & Chem 7: 10/20/21 23:55 10/20/21 23:55 Labs: Abnormal Lab Results - Last 24 Hours (Table) 10/21/21 10/21/21 10/21/21 Range/Units 11:06 12:05 12:05 C-Reactive Protein 6.9 H (<1.0) mg/dL Procalcitonin 0.31 H (0.02-0.09) ng/mL Urine Protein Trace H (Negative) Ur Leukocyte Esterase Trace H (Negative) Hyaline Casts 3 H (0-2) /lpf Urine Mucus Rare H (None) /hpf Microbiology - Last 24 Hours (Table) 10/20/21 23:35 Blood Culture - Preliminary Blood No Growth after 24 hours 10/20/21 23:19 Blood Culture - Preliminary Blood No Growth after 24 hours Assessment and Plan Assessment: Assessment #1 possible underlying pneumonia #2 cardiac arrhythmia, atrial fibrillation versus multifocal atrial tachycardia #3 cardiac murmur was diminished in the intensity of S2 #3 permanent pacemaker #4 multiple and known cardiac abnormalities. The patient follows with a police crime scene technician at [facility] #5 marginal low blood pressure Plan #1 continue the current medical regimen #2 obtain an echo to evaluate the ejection fraction as well as the intracardiac valves #3 decrease the dose of IV Lasix in the light of low blood pressure #4 continue antibiotic #5 follow-up with the patient
[2021-10-22] MEDS ORDERED: ASPIRIN 325 MG TAB PO SCH (09:00)
[2021-10-22 09:54] LABS: African American GFR (CKD) >90 (>60 ml/min/1.73 sqM); Anion Gap 6 mmol/L; Blood Urea Nitrogen 23 mg/dL (9-20); Calcium 8.5 mg/dL (8.4-10.2); Carbon Dioxide 32 mmol/L (22-30); Chloride 99 mmol/L (98-107); Glucose 82 mg/dL (74-99); Non-African American GFR(CKD) 81 (>60 ml/min/1.73 sqM); Potassium 4.2 mmol/L (3.5-5.1); Sodium 137 mmol/L (137-145)
[2021-10-22 10:02] LABS: Anisocytosis Slight; Basophils % (A) 0 %; Eosinophils # (A) 0.1 k/uL (0-0.7); Eosinophils % (A) 1 %; HCT 29.2 % (39.0-53.0); Hypochromasia Marked; Lymphocytes # (A) 1.4 k/uL (1.0-4.8); Lymphocytes % (A) 12 %; MCH 33.2 pg (25.0-35.0); MCHC 30.3 g/dL (31.0-37.0); MCV 109.5 fL (80.0-100.0); Macrocytosis Marked; Mean Platelet Volume 11.3; Monocytes # (A) 0.6 k/uL (0-1.0); Monocytes % (A) 5 %; Neutrophils # (A) 9.1 k/uL (1.3-7.7); Neutrophils % (A) 80 %; Platelet Count 182 k/uL (150-450); RBC 2.67 m/uL (4.30-5.90); RDW 17.2 % (11.5-15.5); WBC 11.3 k/uL (3.8-10.6)
[2021-10-22 10:03] LABS: HGB 8.9 gm/dL (13.0-17.5)
[2021-10-22] MEDS: allopurinoL 300 MG TAB PO SCH (10:06)
[2021-10-22] MEDS: POTASSIUM CHLORIDE ER 20 MEQ TAB.ER PO SCH ×2 (10:06→21:08)
[2021-10-22] MEDS: FAMOTIDINE 20 MG TAB PO SCH ×2 (10:06→21:08)
[2021-10-22] MEDS: ASPIRIN 81 MG PO SCH (10:07)
[2021-10-22] MEDS: MAGNESIUM OXIDE 400 MG TAB PO SCH ×2 (10:07→21:08)
[2021-10-22] MEDS: CLOPIDOGREL 75 MG TAB PO SCH (10:07)
[2021-10-22] MEDS: AZITHROMYCIN 250 MG TAB PO SCH (10:07)
[2021-10-22] MEDS: METOPROLOL SUCCINATE (ER) 25 MG TAB.ER.24H PO SCH (10:07)
[2021-10-22 11:40] LABS: Poikilocytosis (M) Present
[2021-10-22] MEDS: FUROSEMIDE 10 MG/ML 2 ML VIAL IV SCH (18:57)
[2021-10-22] MEDS: QUEtiapine 25 MG TAB PO SCH (21:08)
[2021-10-22] MEDS: SERTRALINE 50 MG TAB PO SCH (21:08)
[2021-10-22] MEDS: ATORVASTATIN 80 MG TAB PO SCH (21:08)
[2021-10-23] MEDS: FUROSEMIDE 10 MG/ML 2 ML VIAL IV SCH ×2 (06:52→15:46)
[2021-10-23] MEDS: PANTOPRAZOLE 40 MG TABLET PO SCH ×2 (06:52→21:31)
[2021-10-23] MEDS: SUCRALFATE 1 GM TAB PO SCH ×4 (06:52→21:31)
--- NOTE | 2021-10-23 07:38 | P.PN ---
Subjective Progress Note Date: 10/22/21 Principal diagnosis: Leukocytosis Patient is a 81-year-old male with multiple comorbidities presenting to the hospital with increasing shortness of breath or cough sputum production did have elevated white count and concerning for pneumonia. On today's evaluation that is 10/22/2021, the patient denies having any fever or chills, the patient is breathing slightly comfortably, patient denies having any chest pain. The patient did have a cough with occasional sputum denies any abdominal pain and no diarrhea Objective - Vital Signs Vital signs: Vital Signs Temp 97.9 F 10/22/21 15:05 Pulse 55 L 10/22/21 15:05 Resp 16 10/22/21 15:05 BP 92/51 10/22/21 15:05 Pulse Ox 95 10/22/21 15:05 FiO2 40 10/21/21 11:14 Intake & Output 10/22/21 10/22/21 10/23/21 06:59 18:59 06:59 Intake Total 1080 480 Output Total 925 1500 Balance 155 -1020 Weight 85.5 kg Intake: Oral 1080 480 Output: Urine 925 1500 Other: Voiding Method Urinal Urinal # Voids 1 - Exam GENERAL DESCRIPTION: An elderly male lying in bed in no distress RESPIRATORY SYSTEM: Unlabored breathing , decreased breath sounds at bases HEART: S1 S2 regular rate and rhythm , ABDOMEN: Soft , no tenderness EXTREMITIES: No edema feet - Labs CBC & Chem 7: 10/22/21 08:37 10/22/21 08:37 Labs: Abnormal Lab Results - Last 24 Hours (Table) 10/22/21 10/22/21 10/22/21 Range/Units 08:37 08:37 08:37 WBC 11.3 H (3.8-10.6) k/uL RBC 2.67 L (4.30-5.90) m/uL Hgb 8.9 L D (13.0-17.5) gm/dL Hct 29.2 L (39.0-53.0) % MCV 109.5 H (80.0-100.0) fL MCHC 30.3 L (31.0-37.0) g/dL RDW 17.2 H (11.5-15.5) % Neutrophils # 9.1 H (1.3-7.7) k/uL Macrocytosis Marked A Carbon Dioxide 32 H (22-30) mmol/L BUN 23 H (9-20) mg/dL Procalcitonin 0.26 H (0.02-0.09) ng/mL Microbiology - Last 24 Hours (Table) 10/20/21 23:35 Blood Culture - Preliminary Blood No Growth after 24 hours 10/20/21 23:19 Blood Culture - Preliminary Blood No Growth after 24 hours Assessment and Plan (1) Leukocytosis Current Visit: Yes Status: Acute Code(s): D72.829 - ELEVATED WHITE BLOOD CELL COUNT, UNSPECIFIED SNOMED Code(s): 724889401 Plan: 1patient with elevated white count in this patient presented to hospital with increasing shortness of breath the patient also have a cough and bringing some purulent sputum concerning for possible pneumonia. 2 sputum for gram stain and culture has been requested has not been collected yet, procalcitonin is elevated . 3patient to continue with Rocephin and Zithromax while awaiting for the cultures to be finalize Time with Patient: Less than 30
[2021-10-23 07:59] LABS: African American GFR (CKD) >90 (>60 ml/min/1.73 sqM); Anion Gap 3 mmol/L; Blood Urea Nitrogen 24 mg/dL (9-20); Calcium 8.2 mg/dL (8.4-10.2); Carbon Dioxide 32 mmol/L (22-30); Chloride 102 mmol/L (98-107); Glucose 90 mg/dL (74-99); Non-African American GFR(CKD) 83 (>60 ml/min/1.73 sqM); Potassium 4.4 mmol/L (3.5-5.1); Sodium 137 mmol/L (137-145)
[2021-10-23 08:01] LABS: Anisocytosis Slight; Basophils % (A) 0 %; Eosinophils # (A) 0.1 k/uL (0-0.7); Eosinophils % (A) 1 %; HCT 29.7 % (39.0-53.0); Hypochromasia Marked; Lymphocytes # (A) 1.8 k/uL (1.0-4.8); Lymphocytes % (A) 17 %; MCH 33.3 pg (25.0-35.0); MCHC 30.3 g/dL (31.0-37.0); MCV 109.9 fL (80.0-100.0); Macrocytosis Marked; Mean Platelet Volume 10.7; Monocytes # (A) 0.6 k/uL (0-1.0); Monocytes % (A) 6 %; Neutrophils # (A) 7.8 k/uL (1.3-7.7); Neutrophils % (A) 73 %; Platelet Count 186 k/uL (150-450); RBC 2.71 m/uL (4.30-5.90); RDW 17.5 % (11.5-15.5); WBC 10.8 k/uL (3.8-10.6)
--- NOTE | 2021-10-23 09:55 | P.PN ---
Subjective Progress Note Date: 10/22/21 Principal diagnosis: Acute exacerbation CHF Possible underlying pneumonia Cardiac arrhythmia; atrial fibrillation versus MAT 81-year-old man arriving by ambulance to be evaluated for shortness of breath. The patient's recent history notable for having been at [facility] where he usually gets his care for pneumonia. He states that that cleared up and he was at home doing relatively well until earlier today. He started having a little more cough. He tried to sleep and then the shortness of breath became much worse. His breathing is worse lying back. Patient has had some cough with clear sputum. Patient has not had chest pain. He has not noted fever or chills. No leg pain. No change in bowel movements or urination. Workup in the emergency department and he was diagnosed with heart failure. He was started on Lasix IV. When the patient was seen and examined he doesn't look in any overt congestive heart failure. He underwent an NT proBNP which came in to be around 2000. The chest x-ray showed findings consistent with pulmonary vascular congestions. The initial evaluation of the EKG showed atrial fibrillation but further local showed that the EKG showing what it seems to be multifocal atrial tachycardia. He also was started on antibiotic for possible underlying pneumonia. Most noticeable that the examination revealed diminished breathing sounds bilaterally with very harsh systolic murmur at the right and left upper sternal border. We will obtain an echocardiogram for further clarification Objective - Vital Signs Vital signs: Vital Signs Temp 97.8 F 10/22/21 09:45 Pulse 58 L 10/22/21 09:45 Resp 16 10/22/21 09:45 BP 92/45 10/22/21 09:45 Pulse Ox 100 10/22/21 09:45 FiO2 40 10/21/21 11:14 Intake & Output 10/21/21 10/22/21 10/22/21 18:59 06:59 18:59 Intake Total 1080 120 Output Total 3849 334 2806 Balance -1400 155 -1080 Weight 79.379 kg 85.5 kg Intake: Oral 1080 120 Output: Urine 0829 005 1916 Other: Voiding Method Urinal Urinal Urinal # Voids 1 - Exam GENERAL: The patient is alert and oriented x3, not in any acute distress. Well developed, well nourished. HEENT: Pupils are round and equally reacting to light. EOMI. No scleral icterus. No conjunctival pallor. Normocephalic, atraumatic. No pharyngeal erythema. No thyromegaly. CARDIOVASCULAR: S1 and S2 present. No murmurs, rubs, or gallops. PULMONARY: Chest is clear to auscultation, no wheezing or crackles. ABDOMEN: Soft, nontender, nondistended, normoactive bowel sounds. No palpable organomegaly. MUSCULOSKELETAL: No joint swelling or deformity. EXTREMITIES: No cyanosis, clubbing, or pedal edema. NEUROLOGICAL: Gross neurological examination did not reveal any focal deficits. SKIN: No rashes. - Labs CBC & Chem 7: 10/23/21 06:45 10/23/21 06:45 Labs: Abnormal Lab Results - Last 24 Hours (Table) 10/21/21 10/21/21 10/21/21 Range/Units 11:06 12:05 12:05 WBC (3.8-10.6) k/uL RBC (4.30-5.90) m/uL Hgb (13.0-17.5) gm/dL Hct (39.0-53.0) % MCV (80.0-100.0) fL MCHC (31.0-37.0) g/dL RDW (11.5-15.5) % Macrocytosis Carbon Dioxide (22-30) mmol/L BUN (9-20) mg/dL C-Reactive Protein 6.9 H (<1.0) mg/dL Procalcitonin 0.31 H (0.02-0.09) ng/mL Urine Protein Trace H (Negative) Ur Leukocyte Esterase Trace H (Negative) Hyaline Casts 3 H (0-2) /lpf Urine Mucus Rare H (None) /hpf 10/22/21 10/22/21 Range/Units 08:37 08:37 WBC 11.3 H (3.8-10.6) k/uL RBC 2.67 L (4.30-5.90) m/uL Hgb 8.9 L D (13.0-17.5) gm/dL Hct 29.2 L (39.0-53.0) % MCV 109.5 H (80.0-100.0) fL MCHC 30.3 L (31.0-37.0) g/dL RDW 17.2 H (11.5-15.5) % Macrocytosis Marked A Carbon Dioxide 32 H (22-30) mmol/L BUN 23 H (9-20) mg/dL C-Reactive Protein (<1.0) mg/dL Procalcitonin (0.02-0.09) ng/mL Urine Protein (Negative) Ur Leukocyte Esterase (Negative) Hyaline Casts (0-2) /lpf Urine Mucus (None) /hpf Microbiology - Last 24 Hours (Table) 10/20/21 23:35 Blood Culture - Preliminary Blood No Growth after 24 hours 10/20/21 23:19 Blood Culture - Preliminary Blood No Growth after 24 hours Assessment and Plan Assessment: 1. Acute exacerbation CHF - Patient has been placed on Lasix 40 mg IV every 12 hours; we will monitor strict ISABEL's, daily weights, low salt and fluid restricted diet - Recommend 2-D echo - Cardiology is consulted 2. Possible underlying pneumonia; patient has been placed on IV Rocephin and azithromycin; we will monitor CBC, CRP antral calcitonin; order blood culture and sputum culture 3. Cardiac arrhythmia; atrial fibrillation versus MAT; patient has history of atrial fibrillation; patient is currently rate controlled on metoprolol 25 mg daily; not on anticoagulation therapy 4. Marked leukocytosis; likely related to possible pneumonia; monitor CBC; we will plan to change antibiotics and consult ID if WBC continues to trend up 5. Hypertension; metoprolol 25 mg daily 6. Hyperlipidemia; Lipitor 80 mg by mouth daily at bedtime 7. COPD; not in exacerbation; continue with home inhaler therapy 8. Gout; T new with allopurinol 300 mg daily 9. Depression/insomnia; Zoloft 50 mg by mouth daily at bedtime, Seroquel 12.5 mg daily at bedtime
[2021-10-23] MEDS: ASPIRIN 81 MG PO SCH (10:15)
[2021-10-23] MEDS: CLOPIDOGREL 75 MG TAB PO SCH (10:16)
[2021-10-23] MEDS: allopurinoL 300 MG TAB PO SCH (10:16)
[2021-10-23] MEDS: METOPROLOL SUCCINATE (ER) 25 MG TAB.ER.24H PO SCH (10:16)
[2021-10-23] MEDS: AZITHROMYCIN 250 MG TAB PO SCH (10:16)
[2021-10-23] MEDS: MAGNESIUM OXIDE 400 MG TAB PO SCH ×2 (10:17→21:31)
[2021-10-23] MEDS: POTASSIUM CHLORIDE ER 20 MEQ TAB.ER PO SCH ×2 (10:26→21:31)
[2021-10-23 12:42] VITALS: BMI 24.2
--- NOTE | 2021-10-23 13:44 | P.PN ---
Subjective Progress Note Date: 10/23/21 HISTORY OF PRESENT ILLNESS: This is an 81-year-old gentleman with a known past medical history who presented to the emergency department not feeling well. The patient is a poor historian. He was very lethargic when he was seen and examined. The patient was brought apparently by ambulance. According to the chart he was not feeling well where he was experiencing symptoms of being tired and fatigued and has no energy and lately for the last few days he has been more short of breath and the shortness of breath was associated with cough. No evidence that the patient was expe riencing any fever or chills. No evidence that he was experiencing chest pain or chest discomfort. He underwent a workup in the emergency department and he was diagnosed with heart failure. He was started on Lasix IV. When the patient was seen and examined he doesn't look in any overt congestive heart failure. He underwent an NT proBNP which came in to be around 2000. The chest x-ray showed findings consistent with pulmonary vascular congestions. The initial evaluation of the EKG showed atrial fibrillation but further local showed that the EKG showing what it seems to be multifocal atrial tachycardia. He also was started on antibiotic for possible underlying pneumonia. Most noticeable that the examination revealed diminished breathing sounds bilaterally with very harsh systolic murmur at the right and left upper sternal border. We will obtain an echocardiogram for further clarification 10/22/2021 The patient was seen this morning. His mentation somewhat better. He continues to be poor historian. He stated that his shortness of breath has improved. His pressure continues to be marginal. I'm going to decrease the dose of Lasix in the light of margin a low blood pressure. Currently he is on antibiotic for possible underlying pneumonia. An echocardiogram is in process to be done. Further recommendation to follow. 10/23/2021 Patient examined this morning at the bedside. Patient denies chest pain or pressure. He reports mild shortness of breath. Patient remains on IV Lasix. Telemetry reveals paced rhythm with underlying atrial fibrillation. Vital signs are stable. Blood pressure 150/63. PHYSICAL EXAM: VITAL SIGNS: Reviewed. GENERAL: Well-developed in no acute distress. NECK: Supple. No JVD or thyromegaly LUNGS: Respirations even and unlabored. Lungs diminished with bibasilar crackles. HEART: Regular rate and rhythm. S1 and S2 heard. Systolic murmur. EXTREMITIES: Normal range of motion. No clubbing or cyanosis. Peripheral pulses intact. Bilateral trace lower extremity edema ASSESSMENT: Possible pneumonia Acute on chronic heart failure, type unknown, echo pending Persistent atrial fibrillation, with history of Watchman procedure Systolic murmur History of pacemaker implantation PLAN: 2D echo ordered. Await results. Continue IV lasix Daily weights Accurate I&O Monitor kidney function Further recommendations pending patient course Obtain records from patient's primary v[facility] to further investigate the reason the patient is on Plavix outpatient Patient to follow up outpatient with his primary [facility] out of [facility] Nurse practitioner note has been reviewed by physician. Signing provider agrees with the documented findings, assessment, and plan of care. Objective - Vital Signs Vital signs: Vital Signs Temp 97.9 F 10/23/21 12:00 Pulse 64 10/23/21 12:00 Resp 16 10/23/21 12:00 BP 115/63 10/23/21 12:00 Pulse Ox 97 10/23/21 12:00 FiO2 40 10/21/21 11:14 Intake & Output 10/22/21 10/23/21 10/23/21 18:59 06:59 18:59 Intake Total 480 598 Output Total 1500 1475 1080 Balance -1020 -1475 -482 Weight 80.9 kg 80.9 kg Intake: Oral 480 598 Output: Urine 1500 1475 1080 Other: Voiding Method Urinal Urinal Urinal # Bowel Movements 1 - Labs CBC & Chem 7: 10/23/21 06:45 10/23/21 06:45 Labs: Abnormal Lab Results - Last 24 Hours (Table) 10/22/21 10/23/21 10/23/21 Range/Units 08:37 06:45 06:45 WBC 10.8 H (3.8-10.6) k/uL RBC 2.71 L (4.30-5.90) m/uL Hgb 9.0 L (13.0-17.5) gm/dL Hct 29.7 L (39.0-53.0) % MCV 109.9 H (80.0-100.0) fL MCHC 30.3 L (31.0-37.0) g/dL RDW 17.5 H (11.5-15.5) % Neutrophils # 7.8 H (1.3-7.7) k/uL Macrocytosis Marked A Carbon Dioxide 32 H (22-30) mmol/L BUN 24 H (9-20) mg/dL Calcium 8.2 L (8.4-10.2) mg/dL Procalcitonin 0.26 H (0.02-0.09) ng/mL Microbiology - Last 24 Hours (Table) 10/20/21 23:35 Blood Culture - Preliminary Blood No Growth after 48 hours 10/20/21 23:19 Blood Culture - Preliminary Blood No Growth after 48 hours
--- NOTE | 2021-10-23 14:16 | P.PN ---
Subjective Progress Note Date: 10/23/21 Principal diagnosis: Acute exacerbation CHF Possible underlying pneumonia Cardiac arrhythmia; atrial fibrillation versus MAT 81-year-old man arriving by ambulance to be evaluated for shortness of breath. The patient's recent history notable for having been at [facility] where he usually gets his care for pneumonia. He states that that cleared up and he was at home doing relatively well until earlier today. He started having a little more cough. He tried to sleep and then the shortness of breath became much worse. His breathing is worse lying back. Patient has had some cough with clear sputum. Patient has not had chest pain. He has not noted fever or chills. No leg pain. No change in bowel movements or urination. Workup in the emergency department and he was diagnosed with heart failure. He was started on Lasix IV. When the patient was seen and examined he doesn't look in any overt congestive heart failure. He underwent an NT proBNP which came in to be around 2000. The chest x-ray showed findings consistent with pulmonary vascular congestions. The initial evaluation of the EKG showed atrial fibrillation but further local showed that the EKG showing what it seems to be multifocal atrial tachycardia. He also was started on antibiotic for possible underlying pneumonia. Most noticeable that the examination revealed diminished breathing sounds bilaterally with very harsh systolic murmur at the right and left upper sternal border. We will obtain an echocardiogram for further clarification 10/23/2021 Patient is seen and evaluated resting in bed; continues to report difficulty breathing; denies any complaint of chest pain Vital signs are reviewed; blood pressure is slightly elevated at 150/63; telemetry reveals paced rhythm with underlying atrial fibrillation Patient remains on IV antibiotics in form of IV Rocephin and azithromycin for possible pneumonia; cardiology recommending to continue with IV Lasix at this time; we will continue to monitor strict ISABEL's and daily weights and will monitor renal function and electrolytes; low-salt and fluid restricted diet; echocardiogram is ordered and pending Objective - Vital Signs Vital signs: Vital Signs Temp 98.1 F 10/23/21 04:25 Pulse 63 10/23/21 04:25 Resp 18 10/23/21 04:25 BP 93/60 10/23/21 04:25 Pulse Ox 97 10/23/21 08:11 FiO2 40 10/21/21 11:14 Intake & Output 10/22/21 10/23/21 10/23/21 18:59 06:59 18:59 Intake Total 480 358 Output Total 1500 1475 600 Balance -1020 -6755 -049 Weight 80.9 kg Intake: Oral 480 358 Output: Urine 1500 1475 600 Other: Voiding Method Urinal Urinal # Bowel Movements 1 - Exam GENERAL: The patient is alert and oriented x3, not in any acute distress. Well developed, well nourished. HEENT: Pupils are round and equally reacting to light. EOMI. No scleral icterus. No conjunctival pallor. Normocephalic, atraumatic. No pharyngeal erythema. No thyromegaly. CARDIOVASCULAR: S1 and S2 present. No murmurs, rubs, or gallops. PULMONARY: Chest is clear to auscultation, no wheezing or crackles. ABDOMEN: Soft, nontender, nondistended, normoactive bowel sounds. No palpable organomegaly. MUSCULOSKELETAL: No joint swelling or deformity. EXTREMITIES: No cyanosis, clubbing, or pedal edema. NEUROLOGICAL: Gross neurological examination did not reveal any focal deficits. SKIN: No rashes. - Labs CBC & Chem 7: 10/23/21 06:45 10/23/21 06:45 Labs: Abnormal Lab Results - Last 24 Hours (Table) 10/22/21 10/22/21 10/23/21 Range/Units 08:37 08:37 06:45 WBC 11.3 H 10.8 H (3.8-10.6) k/uL RBC 2.67 L 2.71 L (4.30-5.90) m/uL Hgb 8.9 L D 9.0 L (13.0-17.5) gm/dL Hct 29.2 L 29.7 L (39.0-53.0) % MCV 109.5 H 109.9 H (80.0-100.0) fL MCHC 30.3 L 30.3 L (31.0-37.0) g/dL RDW 17.2 H 17.5 H (11.5-15.5) % Neutrophils # 9.1 H 7.8 H (1.3-7.7) k/uL Macrocytosis Marked A Marked A Carbon Dioxide (22-30) mmol/L BUN (9-20) mg/dL Calcium (8.4-10.2) mg/dL Procalcitonin 0.26 H (0.02-0.09) ng/mL 10/23/21 Range/Units 06:45 WBC (3.8-10.6) k/uL RBC (4.30-5.90) m/uL Hgb (13.0-17.5) gm/dL Hct (39.0-53.0) % MCV (80.0-100.0) fL MCHC (31.0-37.0) g/dL RDW (11.5-15.5) % Neutrophils # (1.3-7.7) k/uL Macrocytosis Carbon Dioxide 32 H (22-30) mmol/L BUN 24 H (9-20) mg/dL Calcium 8.2 L (8.4-10.2) mg/dL Procalcitonin (0.02-0.09) ng/mL Microbiology - Last 24 Hours (Table) 10/20/21 23:35 Blood Culture - Preliminary Blood No Growth after 48 hours 10/20/21 23:19 Blood Culture - Preliminary Blood No Growth after 48 hours Assessment and Plan Assessment: 1. Acute exacerbation CHF - Patient has been placed on Lasix 40 mg IV every 12 hours; we will monitor strict ISABEL's, daily weights, low salt and fluid restricted diet - Recommend 2-D echo - Cardiology is consulted 2. Possible underlying pneumonia; patient has been placed on IV Rocephin and azithromycin; we will monitor CBC, CRP antral calcitonin; order blood culture and sputum culture 3. Cardiac arrhythmia; atrial fibrillation versus MAT; patient has history of atrial fibrillation; patient is currently rate controlled on metoprolol 25 mg daily; not on anticoagulation therapy 4. Marked leukocytosis; likely related to possible pneumonia; monitor CBC; we will plan to change antibiotics and consult ID if WBC continues to trend up 5. Hypertension; metoprolol 25 mg daily 6. Hyperlipidemia; Lipitor 80 mg by mouth daily at bedtime 7. COPD; not in exacerbation; continue with home inhaler therapy 8. Gout; T new with allopurinol 300 mg daily 9. Depression/insomnia; Zoloft 50 mg by mouth daily at bedtime, Seroquel 12.5 mg daily at bedtime
--- NOTE | 2021-10-23 17:06 | CA ---
Transthoracic Echo Report Name: Chaitanya Ardon Age: 81 Gender: M : 1940 Exam Date: 10/23/2021 11:33 Exam Location: [facility] Ht (in): 72 Wt (lb): 178 Ordering Physician: Jasmyn Kapadia Attending/Referring Phys: [id number], Kang Bleacher [employer] Estella Bowers, [id number] Procedure CPT: Indications: LV function Cardiac Hx: Technical Quality: Fair Contrast 1: Total Dose (mL): Contrast 2: Total Dose (mL): MEASUREMENTS (Male / Female) Normal Values 2D ECHO LV Diastolic Diameter PLAX 5.0 cm 4.2 - 5.9 / 3.9 - 5.3 cm LV Systolic Diameter PLAX 3.0 cm IVS Diastolic Thickness 1.2 cm 0.6 - 1.0 / 0.6 - 0.9 cm LVPW Diastolic Thickness 1.2 cm 0.6 - 1.0 / 0.6 - 0.9 cm LV Relative Wall Thickness 0.5 RV Internal Dim ED PLAX 3.5 cm LA Systolic Diameter LX 4.5 cm 3.0 - 4.0 / 2.7 - 3.8 cm M-MODE Aortic Root Diameter MM 3.2 cm MV E Point Septal Separation 0.4 cm DOPPLER AV Peak Velocity 278.7 cm/s AV Peak Gradient 31.1 mmHg AV Mean Velocity 239.8 cm/s AV Mean Gradient 25.6 mmHg AV Velocity Time Integral 101.2 cm AI Peak Velocity 336.2 cm/s AI Peak Gradient 45.2 mmHg AI Pressure Half Time 637.2 ms LVOT Peak Velocity 53.0 cm/s LVOT Peak Gradient 1.1 mmHg TR Peak Velocity 367.2 cm/s TR Peak Gradient 53.9 mmHg Right Ventricular Systolic Press 58.9 mmHg FINDINGS Left Ventricle Left ventricular ejection fraction is estimated at 40-45 %. Left ventricular cavity size normal. Borderline left ventricular hypertrophy. Flattening of ventricular septum in systole and diastole Right Ventricle Mild right ventricular dilatation. Severe pulmonary hypertension. Right Atrium Normal right atrial size. Left Atrium Moderate left atrial dilatation. No evidence for an atrial septal defect. Mitral Valve Mitral valve thickened. Mild mitral annular calcification. Mild mitral regurgitation. Aortic Valve Moderate aortic stenosis with a peak gradient of 31 mmHg and a mean gradient of 26focal thickening of the aortic valve cusps. mmHg. Trileaflet aortic valve. Tricuspid Valve [id number] tricuspid regurgitation. Pulmonic Valve Trace pulmonic regurgitation. Pericardium Normal pericardium. No pericardial effusion. Aorta Normal size aortic root and proximal ascending aorta. CONCLUSIONS LV systolic dysfunction with an ejection fraction of 40-45% Severe pulmonary hypertension Mild to moderate tricuspid regurgitation Moderate aortic stenosis Mild mitral regurgitation Consider transesophageal echo for more optimal evaluation of mitral and aortic valve disease Previewed by: Dr. Mukul Ang MD (Electronically Signed) Final Date: 23 October 2021 17:05
[2021-10-23] MEDS: FAMOTIDINE 20 MG TAB PO SCH ×2 (20:54→21:31)
[2021-10-23] MEDS: QUEtiapine 25 MG TAB PO SCH (21:31)
[2021-10-23] MEDS: ATORVASTATIN 80 MG TAB PO SCH (21:31)
[2021-10-23] MEDS: SERTRALINE 50 MG TAB PO SCH (21:31)
--- NOTE | 2021-10-23 23:05 | P.PN ---
Subjective Progress Note Date: 10/23/21 Principal diagnosis: Leukocytosis Patient is a 81-year-old male with multiple comorbidities presenting to the hospital with increasing shortness of breath or cough sputum production did have elevated white count and concerning for pneumonia. On today's evaluation that is 10/23/2021, the patient remains to be afebrile, the patient is breathing comfortably on his cannula oxygen, patient denies having any chest pain. The patient continue have a cough with occasional s putum, the patient denies any abdominal pain and no diarrhea Objective - Vital Signs Vital signs: Vital Signs Temp 97.9 F 10/23/21 12:00 Pulse 64 10/23/21 12:00 Resp 16 10/23/21 12:00 BP 115/63 10/23/21 12:00 Pulse Ox 97 10/23/21 12:00 FiO2 40 10/21/21 11:14 Intake & Output 10/22/21 10/23/21 10/23/21 18:59 06:59 18:59 Intake Total 480 598 Output Total 1500 1475 1080 [facility] -1020 -1475 -482 Weight 80.9 kg 80.9 kg Intake: Oral 480 598 Output: Urine 1500 1475 1080 Other: Voiding Method Urinal Urinal # Bowel Movements 1 - Exam GENERAL DESCRIPTION: An elderly male lying in bed in no distress RESPIRATORY SYSTEM: Unlabored breathing , decreased breath sounds at bases HEART: S1 S2 regular rate and rhythm , ABDOMEN: Soft , no tenderness EXTREMITIES: No edema feet - Labs CBC & Chem 7: 10/23/21 06:45 10/23/21 06:45 Labs: Abnormal Lab Results - Last 24 Hours (Table) 10/22/21 10/23/21 10/23/21 Range/Units 08:37 06:45 06:45 WBC 10.8 H (3.8-10.6) k/uL RBC 2.71 L (4.30-5.90) m/uL Hgb 9.0 L (13.0-17.5) gm/dL Hct 29.7 L (39.0-53.0) % MCV 109.9 H (80.0-100.0) fL MCHC 30.3 L (31.0-37.0) g/dL RDW 17.5 H (11.5-15.5) % Neutrophils # 7.8 H (1.3-7.7) k/uL Macrocytosis Marked A Carbon Dioxide 32 H (22-30) mmol/L BUN 24 H (9-20) mg/dL Calcium 8.2 L (8.4-10.2) mg/dL Procalcitonin 0.26 H (0.02-0.09) ng/mL Microbiology - Last 24 Hours (Table) 10/20/21 23:35 Blood Culture - Preliminary Blood No Growth after 48 hours 10/20/21 23:19 Blood Culture - Preliminary Blood No Growth after 48 hours Assessment and Plan (1) Leukocytosis Current Visit: Yes Status: Acute Code(s): D72.829 - ELEVATED WHITE BLOOD CELL COUNT, UNSPECIFIED SNOMED Code(s): 731021719 Plan: 1patient with elevated white count in this patient presented to hospital with i ncreasing shortness of breath the patient also have a cough and bringing some purulent sputum concerning for possible pneumonia. 2 sputum for gram stain and culture has been requested has not been collected yet, procalcitonin is mildly elevated . 3patient has shown clinical improvement and will continue with Rocephin and Zithromax while awaiting for the cultures to be finalize Time with Patient: Less than 30
[2021-10-24] MEDS: SUCRALFATE 1 GM TAB PO SCH ×4 (06:23→22:05)
[2021-10-24] MEDS: FUROSEMIDE 10 MG/ML 2 ML VIAL IV SCH ×2 (06:23→22:05)
[2021-10-24] MEDS: PANTOPRAZOLE 40 MG TABLET PO SCH ×2 (06:23→22:04)
[2021-10-24] MEDS ORDERED: FUROSEMIDE 10 MG/ML 2 ML VIAL IV SCH (09:12)
[2021-10-24] MEDS: FAMOTIDINE 20 MG TAB PO SCH ×2 (09:22→22:04)
[2021-10-24] MEDS: MAGNESIUM OXIDE 400 MG TAB PO SCH ×2 (09:22→22:05)
[2021-10-24] MEDS: allopurinoL 300 MG TAB PO SCH (09:22)
[2021-10-24] MEDS: ASPIRIN 81 MG PO SCH (09:22)
[2021-10-24] MEDS: POTASSIUM CHLORIDE ER 20 MEQ TAB.ER PO SCH ×2 (09:22→22:05)
[2021-10-24] MEDS: CLOPIDOGREL 75 MG TAB PO SCH (09:22)
[2021-10-24] MEDS: AZITHROMYCIN 250 MG TAB PO SCH (09:23)
[2021-10-24 09:38] LABS: Anisocytosis Slight; HCT 31.3 % (39.0-53.0); HGB 9.5 gm/dL (13.0-17.5); Hypochromasia Marked; MCH 33.4 pg (25.0-35.0); MCHC 30.5 g/dL (31.0-37.0); MCV 109.7 fL (80.0-100.0); Macrocytosis Marked; Mean Platelet Volume 10.8; Platelet Count 215 k/uL (150-450); RBC 2.85 m/uL (4.30-5.90); RDW 17.3 % (11.5-15.5); WBC 8.9 k/uL (3.8-10.6)
[2021-10-24 10:05] LABS: African American GFR (CKD) >90 (>60 ml/min/1.73 sqM); Anion Gap 5 mmol/L; Blood Urea Nitrogen 22 mg/dL (9-20); Calcium 8.4 mg/dL (8.4-10.2); Carbon Dioxide 35 mmol/L (22-30); Chloride 97 mmol/L (98-107); Glucose 65 mg/dL (74-99); Non-African American GFR(CKD) 86 (>60 ml/min/1.73 sqM); Potassium 3.9 mmol/L (3.5-5.1); Sodium 137 mmol/L (137-145)
[2021-10-24 10:18] LABS: Eosinophils # (M) 0.18 k/uL (0-0.7); Lymphocytes # (M) 2.76 k/uL (1.0-4.8); Metamyelocytes # (M) 0.18 k/uL (0); Metamyelocytes % 2 %; Myelocytes # (M) 0.09 k/uL (0); Myelocytes % 1 %; Neutrophils % (M) 55 %; Nucleated Red Blood Cells 0 /100 WBC (0-0); Stomatocytes Present; Total Cells Counted 100
[2021-10-24 10:19] LABS: Ovalocytes Present
--- NOTE | 2021-10-24 11:39 | P.PN ---
Subjective Progress Note Date: 10/24/21 HISTORY OF PRESENT ILLNESS: This is an 81-year-old gentleman with a known past medical history who presented to the emergency department not feeling well. The patient is a poor historian. He was very lethargic when he was seen and examined. The patient was brought apparently by ambulance. According to the chart he was not feeling well where he was experiencing symptoms of being tired and fatigued and has no energy and lately for the last few days he has been more short of breath and the shortness of breath was associated with cough. No evidence that the patient was expe riencing any fever or chills. No evidence that he was experiencing chest pain or chest discomfort. He underwent a workup in the emergency department and he was diagnosed with heart failure. He was started on Lasix IV. When the patient was seen and examined he doesn't look in any overt congestive heart failure. He underwent an NT proBNP which came in to be around 2000. The chest x-ray showed findings consistent with pulmonary vascular congestions. The initial evaluation of the EKG showed atrial fibrillation but further local showed that the EKG showing what it seems to be multifocal atrial tachycardia. He also was started on antibiotic for possible underlying pneumonia. Most noticeable that the examination revealed diminished breathing sounds bilaterally with very harsh systolic murmur at the right and left upper sternal border. We will obtain an echocardiogram for further clarification 10/22/2021 The patient was seen this morning. His mentation somewhat better. He continues to be poor historian. He stated that his shortness of breath has improved. His pressure continues to be marginal. I'm going to decrease the dose of Lasix in the light of margin a low blood pressure. Currently he is on antibiotic for possible underlying pneumonia. An echocardiogram is in process to be done. Further recommendation to follow. 10/23/2021 Patient examined this morning at the bedside. Patient denies chest pain or pressure. He reports mild shortness of breath. Patient remains on IV Lasix. Telemetry reveals paced rhythm with underlying atrial fibrillation. Vital signs are stable. Blood pressure 150/63. 10/24/2021 Patient examined this morning at the bedside. Patient denies chest pain or pressure. He reports worsening shortness of breath this morning with rest and with exertion. Patient remains on IV Lasix. Telemetry reveals paced rhythm with underlying atrial fibrillation. Blood pressures this morning were documented with a systolic in the 70s. Manual blood pressure obtained with a reading of 94/42. Patient denies any dizziness or lightheadedness. Kidney function remained stable. BUN 22. Creatinine 0.77. Echocardiogram completed revealing ejection fraction 40-45%, mild mitral regurgitation, [id number] tricuspid regurgitation, moderate aortic stenosis, and severe pulmonary hypertension PHYSICAL EXAM: VITAL SIGNS: Reviewed. GENERAL: Well-developed in no acute distress. NECK: Supple. No JVD or thyromegaly LUNGS: Respirations even and unlabored. Lungs diminished with bibasilar crackles. HEART: Regular rate and rhythm. S1 and S2 heard. Systolic murmur. EXTREMITIES: Normal range of motion. No clubbing or cyanosis. Peripheral pulses intact. No lower extremity edema ASSESSMENT: Possible pneumonia Acute on chronic heart failure, with preserved ejection fraction, mildly reduced, 40-45% Persistent atrial fibrillation, with history of Watchman procedure Mild mitral regurgitation, [id number] tricuspid regurgitation, moderate aortic stenosis Severe pulmonary per tension History of pacemaker implantation PLAN: Continue current cardiac medications Monitor blood pressure Continue IV lasix Daily weights Accurate I&O Monitor kidney function Patient to follow up outpatient with his primary director of sustainability programs out of [facility] Further recommendations pending patient course Nurse practitioner note has been reviewed by physician. Signing provider agrees with the documented findings, assessment, and plan of care. Objective - Vital Signs Vital signs: Vital Signs Temp 98.2 F 10/24/21 08:00 Pulse 81 10/24/21 08:00 Resp 20 10/24/21 08:00 BP 94/42 10/24/21 10:19 Pulse Ox 98 10/24/21 08:00 FiO2 40 10/21/21 11:14 Intake & Output 10/23/21 10/24/21 10/24/21 18:59 06:59 18:59 Intake Total 1318 480 Output Total 1880 1225 150 Balance -562 -1225 330 Weight 80.9 kg 79.6 kg Intake: Oral 1318 480 Output: Urine 1880 1225 150 Other: Voiding Method Urinal Urinal # Bowel Movements 1 1 - Labs CBC & Chem 7: 10/24/21 08:55 10/24/21 08:55 Labs: Abnormal Lab Results - Last 24 Hours (Table) 10/24/21 10/24/21 Range/Units 08:55 08:55 RBC 2.85 L (4.30-5.90) m/uL Hgb 9.5 L (13.0-17.5) gm/dL Hct 31.3 L (39.0-53.0) % MCV 109.7 H (80.0-100.0) fL MCHC 30.5 L (31.0-37.0) g/dL RDW 17.3 H (11.5-15.5) % Metamyelocytes # (Man) 0.18 H (0) k/uL Myelocytes # (Manual) 0.09 H (0) k/uL Macrocytosis Marked A Chloride 97 L (98-107) mmol/L Carbon Dioxide 35 H (22-30) mmol/L BUN 22 H (9-20) mg/dL Glucose 65 L (74-99) mg/dL Microbiology - Last 24 Hours (Table) 10/20/21 23:35 Blood Culture - Preliminary Blood No Growth after 72 hours 10/20/21 23:19 Blood Culture - Preliminary Blood No Growth after 72 hours
[2021-10-24] MEDS: METOPROLOL SUCCINATE (ER) 25 MG TAB.ER.24H PO SCH (16:59)
[2021-10-24] MEDS: ATORVASTATIN 80 MG TAB PO SCH (22:04)
[2021-10-24] MEDS: QUEtiapine 25 MG TAB PO SCH (22:04)
[2021-10-24] MEDS: SERTRALINE 50 MG TAB PO SCH (22:04)
--- NOTE | 2021-10-25 04:48 | P.PN ---
Subjective Progress Note Date: 10/24/21 Acute exacerbation CHF Possible underlying pneumonia Cardiac arrhythmia; atrial fibrillation versus MAT 81-year-old man arriving by ambulance to be evaluated for shortness of breath. The patient's recent history notable for having been at [facility] where he usually gets his care for pneumonia. He states that that cleared up and he was at home doing relatively well until earlier today. He started having a little more cough. He tried to sleep and then the shortness of breath became much worse. His breathing is worse lying back. Patient has had some cough with clear sputum. Patient has not had chest pain. He has not noted fever or chills. No leg pain. No change in bowel movements or urination. Workup in the emergency department and he was diagnosed with heart failure. He was started on Lasix IV. When the patient was seen and examined he doesn't look in any overt congestive heart failure. He underwent an NT proBNP which came in to be around 2000. The chest x-ray showed findings consistent with pulmonary vascular congestions. The initial evaluation of the EKG showed atrial fibrillation but further local showed that the EKG showing what it seems to be multifocal atrial tachycardia. He also was started on antibiotic for possible underlying pneumonia. Most noticeable that the examination revealed diminished breathing sounds bilaterally with very harsh systolic murmur at the right and left upper sternal border. We will obtain an echocardiogram for further clarification 10/23/2021 Patient is seen and evaluated resting in bed; continues to report difficulty breathing; denies any complaint of chest pain Vital signs are reviewed; blood pressure is slightly elevated at 150/63; telemetry reveals paced rhythm with underlying atrial fibrillation Patient remains on IV antibiotics in form of IV Rocephin and azithromycin for possible pneumonia; cardiology recommending to continue with IV Lasix at this time; we will continue to monitor strict ISABEL's and daily weights and will monitor renal function and electrolytes; low-salt and fluid restricted diet; echocardiogram is ordered and pending 10/24/2021 Patient is seen today and reports continued shortness of breath and is maintained on IV lasix 20mg bid with cardio following. Continued on telemetry monitoring. Blood pressures have been on the lower side and recommend to continue to monitor. Patient uses cpap at night. Patient weaning FI02 as tolerated and is currently 97% on 1Liter via NC. PT/OT following and recommending DANNIELLE for continued strength and mobility. Case management following and working on accepting ECF. Patient is afebrile and denies chest pain or palpitations. Patient is tolerating diet with no reports of nausea or vomiting noted. Encouraged increased activity as tolerated. Recommend am labs and chest xray. ID following and awaiting sputum sample to determine abx. Review of systems: Constitutional: No reports of fatigue, fever, or chills Cardiovascular: No reports of chest pain or palpitations Respiratory: reports of shortness of breath and cough GI: No reports of nausea, vomiting, or diarrhea : No reports of dysuria or retention Neurovascular: reports of generalized weakness All medications have been reviewed Physical exam: GENERAL: The patient is alert and oriented x3, not in any acute distress. Well developed, well nourished. HEENT: Pupils are round and equally reacting to light. EOMI. No scleral icterus. No conjunctival pallor. Normocephalic, atraumatic. No pharyngeal erythema. No thyromegaly. CARDIOVASCULAR: S1 and S2 muffled, irregular PULMONARY: diminished breath sounds bilaterally with some scattered rhonchi noted ABDOMEN: Soft, nontender, nondistended, normoactive bowel sounds. No palpable organomegaly. MUSCULOSKELETAL: No joint swelling or deformity. EXTREMITIES: No cyanosis, clubbing, or pedal edema. NEUROLOGICAL: Gross neurological examination did not reveal any focal deficits. diffuse weakness SKIN: No rashes. Assessment: -Acute on chronic exacerbation CHF, preserved EF, mildly reduced at 40-45% -Possible underlying pneumonia -Cardiac arrhythmia; atrial fibrillation versus MAT; patient has history of atrial fibrillation -Marked leukocytosis; likely related to possible pneumonia -Hypertension -Hyperlipidemia -COPD; not in exacerbation -Gout history -Depression/insomnia Plan: Recommend to continue with IV lasix with cardiology following Recommend repeat labs in the am Recommend to continue with telemetry monitoring and closely monitoring the blood pressure as it has been low Encouraged increased activity as tolerated. Continue with supplemental oxygen support Encouraged oral intake Patient is continued on rocephin and zithromax and ID following and awaiting sputum culture. Blood cultures are negative Case management and social work following looking for accepting ECF for continued PT/OT therapy PT/OT following Prognosis is guarded. The impression and plan of care has been dictated by Michelle Eaton, Nurse Practitioner as directed. Dr. Yaw MD I have performed a history and examination and MDM of this patient, discussed the same with the dictator, and agree with the dictator's assessment and plan as written ,documented as a scribe. Based on total visit time, I have performed more than 50% of the visit. Objective - Vital Signs Vital signs: Vital Signs Temp 97.8 F 10/24/21 04:10 Pulse 66 10/24/21 04:10 Resp 20 10/24/21 04:10 BP 108/65 10/24/21 04:10 Pulse Ox 97 10/24/21 04:10 FiO2 40 10/21/21 11:14 Intake & Output 10/23/21 10/24/21 10/24/21 18:59 06:59 18:59 Intake Total 1318 480 Output Total 1880 1225 Balance -562 -1225 480 Weight 80.9 kg 79.6 kg Intake: Oral 1318 480 Output: Urine 1880 1225 Other: Voiding Method Urinal Urinal # Bowel Movements 1 1 - Labs CBC & Chem 7: 10/24/21 08:55 10/24/21 08:55 Labs: Microbiology - Last 24 Hours (Table) 10/20/21 23:35 Blood Culture - Preliminary Blood No Growth after 72 hours 10/20/21 23:19 Blood Culture - Preliminary Blood No Growth after 72 hours
[2021-10-25] MEDS: PANTOPRAZOLE 40 MG TABLET PO SCH ×2 (06:38→17:59)
[2021-10-25] MEDS: SUCRALFATE 1 GM TAB PO SCH ×4 (06:38→20:26)
--- NOTE | 2021-10-25 07:44 | XR ---
EXAMINATION TYPE: XR chest 1V portable DATE OF EXAM: 10/25/2021 COMPARISON: 10/20/2021 INDICATION: Short of breath TECHNIQUE: Single frontal view of the chest is obtained. FINDINGS: The heart size is upper limits of normal. The pulmonary vasculature is normal. Some mild subsegmental atelectasis may be at the left base. Infiltrate at the left base is improved. Pacemaker overlies the left chest. IMPRESSION: 1. Mild infiltrate along the left base is improving from comparison 2. Cardiomegaly
[2021-10-25 09:34] LABS: African American GFR (CKD) >90 (>60 ml/min/1.73 sqM); Anion Gap 5 mmol/L; Blood Urea Nitrogen 18 mg/dL (9-20); Calcium 8.4 mg/dL (8.4-10.2); Carbon Dioxide 34 mmol/L (22-30); Chloride 99 mmol/L (98-107); Glucose 92 mg/dL (74-99); Non-African American GFR(CKD) 83 (>60 ml/min/1.73 sqM); Potassium 4.1 mmol/L (3.5-5.1); Sodium 138 mmol/L (137-145)
[2021-10-25] MEDS: MAGNESIUM OXIDE 400 MG TAB PO SCH ×2 (10:34→20:26)
[2021-10-25] MEDS: POTASSIUM CHLORIDE ER 20 MEQ TAB.ER PO SCH ×2 (10:34→20:26)
[2021-10-25] MEDS: CLOPIDOGREL 75 MG TAB PO SCH (10:34)
[2021-10-25] MEDS: allopurinoL 300 MG TAB PO SCH (10:35)
[2021-10-25] MEDS: METOPROLOL SUCCINATE (ER) 25 MG TAB.ER.24H PO SCH (10:35)
[2021-10-25] MEDS: FAMOTIDINE 20 MG TAB PO SCH ×2 (10:35→20:26)
[2021-10-25] MEDS: FUROSEMIDE 10 MG/ML 2 ML VIAL IV SCH ×2 (10:35→20:21)
[2021-10-25] MEDS: ASPIRIN 81 MG PO SCH (10:36)
--- NOTE | 2021-10-25 11:46 | P.PN ---
Subjective Progress Note Date: 10/25/21 HISTORY OF PRESENT ILLNESS: This is an 81-year-old gentleman with a known past medical history who presented to the emergency department not feeling well. The patient is a poor historian. He was very lethargic when he was seen and examined. The patient was brought apparently by ambulance. According to the chart he was not feeling well where he was experiencing symptoms of being tired and fatigued and has no energy and lately for the last few days he has been more short of breath and the shortness of breath was associated with cough. No evidence that the patient was expe riencing any fever or chills. No evidence that he was experiencing chest pain or chest discomfort. He underwent a workup in the emergency department and he was diagnosed with heart failure. He was started on Lasix IV. When the patient was seen and examined he doesn't look in any overt congestive heart failure. He underwent an NT proBNP which came in to be around 2000. The chest x-ray showed findings consistent with pulmonary vascular congestions. The initial evaluation of the EKG showed atrial fibrillation but further local showed that the EKG showing what it seems to be multifocal atrial tachycardia. He also was started on antibiotic for possible underlying pneumonia. Most noticeable that the examination revealed diminished breathing sounds bilaterally with very harsh systolic murmur at the right and left upper sternal border. We will obtain an echocardiogram for further clarification 10/22/2021 The patient was seen this morning. His mentation somewhat better. He continues to be poor historian. He stated that his shortness of breath has improved. His pressure continues to be marginal. I'm going to decrease the dose of Lasix in the light of margin a low blood pressure. Currently he is on antibiotic for possible underlying pneumonia. An echocardiogram is in process to be done. Further recommendation to follow. 10/23/2021 Patient examined this morning at the bedside. Patient denies chest pain or pressure. He reports mild shortness of breath. Patient remains on IV Lasix. Telemetry reveals paced rhythm with underlying atrial fibrillation. Vital signs are stable. Blood pressure 150/63. 10/24/2021 Patient examined this morning at the bedside. Patient denies chest pain or pressure. He reports worsening shortness of breath this morning with rest and with exertion. Patient remains on IV Lasix. Telemetry reveals paced rhythm with underlying atrial fibrillation. Blood pressures this morning were documented with a systolic in the 70s. Manual blood pressure obtained with a reading of 94/42. Patient denies any dizziness or lightheadedness. Kidney function remained stable. BUN 22. Creatinine 0.77. Echocardiogram completed revealing ejection fraction 40-45%, mild mitral regurgitation, [id number]-fk-[id number] tricuspid regurgitation, moderate aortic stenosis, and severe pulmonary hypertension 10/25/2021 Patient examined this morning at the bedside. Patient denies chest pain or pressure. He denies shortness of breath. He reports abdominal pain today. Patient remains on IV Lasix. Systolic blood pressure in the 90s. PHYSICAL EXAM: VITAL SIGNS: Reviewed. GENERAL: Well-developed in no acute distress. NECK: Supple. No JVD or thyromegaly LUNGS: Respirations even and unlabored. Lungs diminished HEART: Regular rate and rhythm. S1 and S2 heard. Systolic murmur. EXTREMITIES: Normal range of motion. No clubbing or cyanosis. Peripheral pulses intact. No lower extremity edema ASSESSMENT: Possible pneumonia Acute on chronic heart failure, with preserved ejection fraction, mildly reduce d, 40-45% Persistent atrial fibrillation, with history of Watchman procedure Mild mitral regurgitation, [id number] tricuspid regurgitation, moderate aortic stenosis Severe pulmonary per tension History of pacemaker implantation PLAN: Continue current cardiac medications Discontinue IV Lasix Begin oral Lasix 40 mg twice a day Patient would benefit from TEGAN inhibitor on an outpatient basis of blood pressure is able to tolerate. Patient to follow up outpatient with his primary sash clamp operator out of [facility] Further recommendations pending patient course Nurse practitioner note has been reviewed by physician. Signing provider agrees with the documented findings, assessment, and plan of care. Objective - Vital Signs Vital signs: Vital Signs Temp 98.2 F 10/25/21 10:30 Pulse 57 L 10/25/21 10:30 Resp 18 10/25/21 10:30 BP 92/54 10/25/21 10:30 Pulse Ox 96 10/25/21 10:30 FiO2 40 10/21/21 11:14 Intake & Output 10/24/21 10/25/21 10/25/21 18:59 06:59 18:59 Intake Total 1214 480 240 Output Total 875 750 Balance 339 -270 240 Weight 82.1 kg Intake: Intake, IV Titration 50 Amount cefTRIAXone 2 gm In 50 Sodium Chloride 0.9% 50 ml @ 100 mls/hr IVPB Q24HR [facility] Rx#:[id number] Oral 1164 480 240 Output: Urine 875 750 Other: Voiding Method Urinal # Voids 2 - Labs CBC & Chem 7: 10/24/21 08:55 10/25/21 08:45 Labs: Abnormal Lab Results - Last 24 Hours (Table) 10/25/21 Range/Units 08:45 Carbon Dioxide 34 H (22-30) mmol/L Microbiology - Last 24 Hours (Table) 10/24/21 11:32 Gram Stain - Preliminary Sputum Sputum Culture - Preliminary 10/20/21 23:35 Blood Culture - Preliminary Blood No Growth after 96 hours 10/20/21 23:19 Blood Culture - Preliminary Blood No Growth after 96 hours
--- NOTE | 2021-10-25 15:55 | P.PN ---
Subjective Progress Note Date: 10/24/21 Principal diagnosis: Leukocytosis Patient is a 81-year-old male with multiple comorbidities presenting to the hospital with increasing shortness of breath or cough sputum production did have elevated white count and concerning for pneumonia. On today's evaluation that is 10/24/2021, the patient continues to be afebrile, the patient is breathing comfortably on nasal cannula oxygen, patient denies having any chest pain. The patient cough has decreased in intensity and less productive, the patient denies having abdominal pain and no diarrhea Objective - Vital Signs Vital signs: Vital Signs Temp 97.4 F L 10/24/21 11:44 Pulse 63 10/24/21 11:44 Resp 20 10/24/21 11:44 BP 96/60 10/24/21 11:44 Pulse Ox 92 L 10/24/21 11:44 FiO2 40 10/21/21 11:14 Intake & Output 10/23/21 10/24/21 10/24/21 18:59 06:59 18:59 Intake Total 1318 530 Output Total 1880 1225 550 Balance -562 -1225 -20 Weight 80.9 kg 79.6 kg Intake: Intake, IV Titration 50 Amount cefTRIAXone 2 gm In 50 Sodium Chloride 0.9% 50 ml @ 100 mls/hr IVPB Q24HR [facility] Rx#:[id number] Oral 1318 480 Output: Urine 1880 1225 550 Other: Voiding Method Urinal Urinal # Bowel Movements 1 1 - Exam GENERAL DESCRIPTION: An elderly male lying in bed in no distress RESPIRATORY SYSTEM: Unlabored breathing , decreased breath sounds at bases HEART: S1 S2 regular rate and rhythm , ABDOMEN: Soft , no tenderness EXTREMITIES: No edema feet - Labs CBC & Chem 7: 10/24/21 08:55 10/25/21 08:45 Labs: Abnormal Lab Results - Last 24 Hours (Table) 10/24/21 10/24/21 Range/Units 08:55 08:55 RBC 2.85 L (4.30-5.90) m/uL Hgb 9.5 L (13.0-17.5) gm/dL Hct 31.3 L (39.0-53.0) % MCV 109.7 H (80.0-100.0) fL MCHC 30.5 L (31.0-37.0) g/dL RDW 17.3 H (11.5-15.5) % Metamyelocytes # (Man) 0.18 H (0) k/uL Myelocytes # (Manual) 0.09 H (0) k/uL Macrocytosis Marked A Chloride 97 L (98-107) mmol/L Carbon Dioxide 35 H (22-30) mmol/L BUN 22 H (9-20) mg/dL Glucose 65 L (74-99) mg/dL Microbiology - Last 24 Hours (Table) 10/20/21 23:35 Blood Culture - Preliminary Blood No Growth after 72 hours 10/20/21 23:19 Blood Culture - Preliminary Blood No Growth after 72 hours Assessment and Plan (1) Leukocytosis Current Visit: Yes Status: Acute Code(s): D72.829 - ELEVATED WHITE BLOOD CELL COUNT, UNSPECIFIED SNOMED Code(s): 439023390 Plan: 1patient with elevated white count in this patient presented to hospital with increasing shortness of breath the patient also have a cough and bringing some purulent sputum concerning for possible pneumonia. 2 sputum for gram stain and culture has been collected and results pending, procalcitonin is mildly elevated . 3patient clinical improvement and will continue with Rocephin and Zithromax while awaiting for the cultures to be finalize Time with Patient: Less than 30
--- NOTE | 2021-10-25 15:57 | P.PN ---
Subjective Progress Note Date: 10/25/21 Principal diagnosis: Leukocytosis Patient is a 81-year-old male with multiple comorbidities presenting to the hospital with increasing shortness of breath or cough sputum production did have elevated white count and concerning for pneumonia. On today's evaluation that is 10/25/2021, the patient denies any fever or any chills, the patient is breathing comfortably on nasal cannula oxygen, patient denies having any chest pain. The patient cough has decreased in intensity and mostly dry in nature now, the patient denies having abdominal pain and no diarrhea with antibiotic therapy Objective - Vital Signs Vital signs: Vital Signs Temp 98.2 F 10/25/21 10:30 Pulse 57 L 10/25/21 10:30 Resp 18 10/25/21 10:30 BP 92/54 10/25/21 10:30 Pulse Ox 96 10/25/21 10:30 FiO2 40 10/21/21 11:14 Intake & Output 10/24/21 10/25/21 10/25/21 18:59 06:59 18:59 Intake Total 1214 480 240 Output Total 875 750 500 Balance 339 -270 -260 Weight 82.1 kg Intake: Intake, IV Titration 50 Amount cefTRIAXone 2 gm In 50 Sodium Chloride 0.9% 50 ml @ 100 mls/hr IVPB Q24HR [facility] Rx#:[id number] Oral 1164 480 240 Output: Urine 875 750 500 Other: Voiding Method Urinal # Voids 2 - Exam GENERAL DESCRIPTION: An elderly male lying in bed in no distress RESPIRATORY SYSTEM: Unlabored breathing , decreased breath sounds at bases HEART: S1 S2 regular rate and rhythm , ABDOMEN: Soft , no tenderness EXTREMITIES: No edema feet - Labs CBC & Chem 7: 10/24/21 08:55 10/25/21 08:45 Labs: Abnormal Lab Results - Last 24 Hours (Table) 10/25/21 Range/Units 08:45 Carbon Dioxide 34 H (22-30) mmol/L Microbiology - Last 24 Hours (Table) 10/24/21 11:32 Gram Stain - Preliminary Sputum Sputum Culture - Preliminary 10/20/21 23:35 Blood Culture - Preliminary Blood No Growth after 96 hours 10/20/21 23:19 Blood Culture - Preliminary Blood No Growth after 96 hours Assessment and Plan (1) Leukocytosis Current Visit: Yes Status: Acute Code(s): D72.829 - ELEVATED WHITE BLOOD CELL COUNT, UNSPECIFIED SNOMED Code(s): 451070127 Plan: 1patient with elevated white count in this patient presented to hospital with increasing shortness of breath the patient also have a cough and bringing some purulent sputum concerning for possible pneumonia. 2 sputum for gram stain and culture has been collected and results pending, chest x-ray this morning that is 10/25/2021 shows improvement of the left lower lobe infiltrate 3patient has shown clinical improvement and will continue with Rocephin and Zithromax while awaiting for the cultures to be finalize to determine his discharge antibiotics Time with Patient: Less than 30
--- NOTE | 2021-10-25 16:19 | P.PN ---
Subjective Progress Note Date: 10/25/21 Acute exacerbation CHF Possible underlying pneumonia Cardiac arrhythmia; atrial fibrillation versus MAT 81-year-old man arriving by ambulance to be evaluated for shortness of breath. The patient's recent history notable for having been at [facility] where he usually gets his care for pneumonia. He states that that cleared up and he was at home doing relatively well until earlier today. He started having a little more cough. He tried to sleep and then the shortness of breath became much worse. His breathing is worse lying back. Patient has had some cough with clear sputum. Patient has not had chest pain. He has not noted fever or chills. No leg pain. No change in bowel movements or urination. Workup in the emergency department and he was diagnosed with heart failure. He was started on Lasix IV. When the patient was seen and examined he doesn't look in any overt congestive heart failure. He underwent an NT proBNP which came in to be around 2000. The chest x-ray showed findings consistent with pulmonary vascular congestions. The initial evaluation of the EKG showed atrial fibrillation but further local showed that the EKG showing what it seems to be multifocal atrial tachycardia. He also was started on antibiotic for possible underlying pneumonia. Most noticeable that the examination revealed diminished breathing sounds bilaterally with very harsh systolic murmur at the right and left upper sternal border. We will obtain an echocardiogram for further clarification 10/23/2021 Patient is seen and evaluated resting in bed; continues to report difficulty breathing; denies any complaint of chest pain Vital signs are reviewed; blood pressure is slightly elevated at 150/63; telemetry reveals paced rhythm with underlying atrial fibrillation Patient remains on IV antibiotics in form of IV Rocephin and azithromycin for possible pneumonia; cardiology recommending to continue with IV Lasix at this time; we will continue to monitor strict ISABEL's and daily weights and will monitor renal function and electrolytes; low-salt and fluid restricted diet; echocardiogram is ordered and pending 10/24/2021 Patient is seen today and reports continued shortness of breath and is maintained on IV lasix 20mg bid with cardio following. Continued on telemetry monitoring. Blood pressures have been on the lower side and recommend to continue to monitor. Patient uses cpap at night. Patient weaning FI02 as tolerated and is currently 97% on 1Liter via NC. PT/OT following and recommending DANNIELLE for continued strength and mobility. Case management following and working on accepting ECF. Patient is afebrile and denies chest pain or palpitations. Patient is tolerating diet with no reports of nausea or vomiting noted. Encouraged increased activity as tolerated. Recommend am labs and chest xray. ID following and awaiting sputum sample to determine abx. 10/25/2021 Patient is seen and evaluated this morning currently sitting up in the chair maintain on IV Lasix with cardiology following. Patient will transition to oral Lasix and currently sitting up on room air and continues with some shortness of breath with exertion. Patient is being monitored closely for CHF exacerbation. Patient also continues with weakness and has been working with physical therapy and may continue to recommend ECF. Patient and agreeable to [facility] in c ase management following with referrals placed. Awaiting review from [facility] for acceptance. Chest x-ray shows some mild infiltrate along the left base that's improving from comparison with continued cardiomegaly. Infectious disease is also following and awaiting on sputum cultures which are negative thus far. Patient will be continued on ceftriaxone while awaiting for the cultures to finalized. Patient is afebrile denies chest pain or palpitations. Patient tolerating diet with no reports of nausea or vomiting noted. Review of systems: Constitutional: No reports of fatigue, fever, or chills Cardiovascular: No reports of chest pain or palpitations Respiratory: reports of shortness of breath and cough, with some improvement GI: No reports of nausea, vomiting, or diarrhea : No reports of dysuria or retention Neurovascular: reports of generalized weakness All medications have been reviewed Physical exam: GENERAL: The patient is alert and oriented x3, not in any acute distress. Well developed, well nourished. HEENT: Pupils are round and equally reacting to light. EOMI. No scleral icterus. No conjunctival pallor. Normocephalic, atraumatic. No pharyngeal erythema. No thyromegaly. CARDIOVASCULAR: S1 and S2 muffled, irregular PULMONARY: diminished breath sounds bilaterally with some scattered rhonchi noted ABDOMEN: Soft, nontender, nondistended, normoactive bowel sounds. No palpable organomegaly. MUSCULOSKELETAL: No joint swelling or deformity. EXTREMITIES: No cyanosis, clubbing, or pedal edema. NEUROLOGICAL: Gross neurological examination did not reveal any focal deficits. diffuse weakness SKIN: No rashes. Assessment: -Acute on chronic exacerbation CHF, preserved EF, mildly reduced at 40-45% -Possible underlying pneumonia -Cardiac arrhythmia; atrial fibrillation versus MAT; patient has history of atrial fibrillation -Marked leukocytosis; likely related to possible pneumonia, improved -Hypertension -Hyperlipidemia -COPD; not in exacerbation -Gout history -Depression/insomnia Plan: Recommend to continue with IV lasix with cardiology following, recommending transitioning to oral Lasix in the morning Recommend repeat labs in the am Recommend to continue with telemetry monitoring and closely monitoring the blood pressure as it has been low Encouraged increased activity as tolerated. Continue with supplemental oxygen support Encouraged oral intake Patient is continued on rocephin and ID following and awaiting sputum culture. Blood cultures are negative Case management and social work following and patient is agreeable to [facility] the [facility] and awaiting acceptance. Patient will need to go to rehab for continued PT/OT therapy PT/OT following Prognosis is guarded. Possible discharge in 24 hours. The impression and plan of care has been dictated by Michelle Eaton, Nurse Practitioner as directed. Dr. Amanda MD I have performed a history and examination and MDM of this patient, discussed the same with the dictator, and agree with the dictator's assessment and plan as written ,documented as a scribe. Based on total visit time, I have performed more than 50% of the visit. Objective - Vital Signs Vital signs: Vital Signs Temp 98.3 F 10/25/21 03:00 Pulse 55 L 10/25/21 03:00 Resp 18 10/25/21 03:00 BP 103/57 10/25/21 03:00 Pulse Ox 95 10/25/21 03:00 FiO2 40 10/21/21 11:14 Intake & Output 10/24/21 10/25/21 10/25/21 18:59 06:59 18:59 Intake Total 1214 480 240 Output Total 875 750 Balance 339 -270 240 Weight 82.1 kg Intake: Intake, IV Titration 50 Amount cefTRIAXone 2 gm In 50 Sodium Chloride 0.9% 50 ml @ 100 mls/hr IVPB Q24HR [facility] Rx#:[id number] Oral 1164 480 240 Output: Urine 875 750 Other: Voiding Method Urinal # Voids 2 - Labs CBC & Chem 7: 10/24/21 08:55 10/25/21 08:45 Labs: Abnormal Lab Results - Last 24 Hours (Table) 10/24/21 10/24/21 Range/Units 08:55 08:55 RBC 2.85 L (4.30-5.90) m/uL Hgb 9.5 L (13.0-17.5) gm/dL Hct 31.3 L (39.0-53.0) % MCV 109.7 H (80.0-100.0) fL MCHC 30.5 L (31.0-37.0) g/dL RDW 17.3 H (11.5-15.5) % Metamyelocytes # (Man) 0.18 H (0) k/uL Myelocytes # (Manual) 0.09 H (0) k/uL Macrocytosis Marked A Chloride 97 L (98-107) mmol/L Carbon Dioxide 35 H (22-30) mmol/L BUN 22 H (9-20) mg/dL Glucose 65 L (74-99) mg/dL Microbiology - Last 24 Hours (Table) 10/20/21 23:35 Blood Culture - Preliminary Blood No Growth after 96 hours 10/20/21 23:19 Blood Culture - Preliminary Blood No Growth after 96 hours 10/24/21 11:32 Sputum Culture - Preliminary Sputum
[2021-10-25] MEDS: SERTRALINE 50 MG TAB PO SCH (20:26)
[2021-10-25] MEDS: ATORVASTATIN 80 MG TAB PO SCH (20:26)
[2021-10-25] MEDS: QUEtiapine 25 MG TAB PO SCH (20:26)
[2021-10-26 04:25] VITALS: RESP 18
[2021-10-26] MEDS: PANTOPRAZOLE 40 MG TABLET PO SCH (06:14)
[2021-10-26] MEDS: SUCRALFATE 1 GM TAB PO SCH ×2 (06:14→12:30)
[2021-10-26] MEDS ORDERED: FUROSEMIDE 40 MG TAB PO SCH (09:00)
[2021-10-26] MEDS: METOPROLOL SUCCINATE (ER) 25 MG TAB.ER.24H PO SCH (10:44)
[2021-10-26] MEDS: CLOPIDOGREL 75 MG TAB PO SCH (10:44)
[2021-10-26] MEDS: ASPIRIN 81 MG PO SCH (10:44)
[2021-10-26] MEDS: POTASSIUM CHLORIDE ER 20 MEQ TAB.ER PO SCH (10:44)
[2021-10-26] MEDS: MAGNESIUM OXIDE 400 MG TAB PO SCH (10:44)
[2021-10-26] MEDS: FAMOTIDINE 20 MG TAB PO SCH (10:44)
[2021-10-26] MEDS: allopurinoL 300 MG TAB PO SCH (10:45)
--- NOTE | 2021-10-26 12:07 | P.PN ---
Subjective Progress Note Date: 10/26/21 HISTORY OF PRESENT ILLNESS: This is an 81-year-old gentleman with a known past medical history who presented to the emergency department not feeling well. The patient is a poor historian. He was very lethargic when he was seen and examined. The patient was brought apparently by ambulance. According to the chart he was not feeling well where he was experiencing symptoms of being tired and fatigued and has no energy and lately for the last few days he has been more short of breath and the shortness of breath was associated with cough. No evidence that the patient was expe riencing any fever or chills. No evidence that he was experiencing chest pain or chest discomfort. He underwent a workup in the emergency department and he was diagnosed with heart failure. He was started on Lasix IV. When the patient was seen and examined he doesn't look in any overt congestive heart failure. He underwent an NT proBNP which came in to be around 2000. The chest x-ray showed findings consistent with pulmonary vascular congestions. The initial evaluation of the EKG showed atrial fibrillation but further local showed that the EKG showing what it seems to be multifocal atrial tachycardia. He also was started on antibiotic for possible underlying pneumonia. Most noticeable that the examination revealed diminished breathing sounds bilaterally with very harsh systolic murmur at the right and left upper sternal border. We will obtain an echocardiogram for further clarification 10/22/2021 The patient was seen this morning. His mentation somewhat better. He continues to be poor historian. He stated that his shortness of breath has improved. His pressure continues to be marginal. I'm going to decrease the dose of Lasix in the light of margin a low blood pressure. Currently he is on antibiotic for possible underlying pneumonia. An echocardiogram is in process to be done. Further recommendation to follow. 10/23/2021 Patient examined this morning at the bedside. Patient denies chest pain or pressure. He reports mild shortness of breath. Patient remains on IV Lasix. Telemetry reveals paced rhythm with underlying atrial fibrillation. Vital signs are stable. Blood pressure 150/63. 10/24/2021 Patient examined this morning at the bedside. Patient denies chest pain or pressure. He reports worsening shortness of breath this morning with rest and with exertion. Patient remains on IV Lasix. Telemetry reveals paced rhythm with underlying atrial fibrillation. Blood pressures this morning were documented with a systolic in the 70s. Manual blood pressure obtained with a reading of 94/42. Patient denies any dizziness or lightheadedness. Kidney function remained stable. BUN 22. Creatinine 0.77. Echocardiogram completed revealing ejection fraction 40-45%, mild mitral regurgitation, [id number] tricuspid regurgitation, moderate aortic stenosis, and severe pulmonary hypertension 10/25/2021 Patient examined this morning at the bedside. Patient denies chest pain or pressure. He denies shortness of breath. He reports abdominal pain today. Patient remains on IV Lasix. Systolic blood pressure in the 90s. 10/26/2021 Patient examined this morning at the bedside. Patient denies chest pain or pressure. He denies shortness of breath. He reports improvement in his abdominal pain. Patient has been transitioned over to oral Lasix. We'll pressure 101/51. PHYSICAL EXAM: VITAL SIGNS: Reviewed. GENERAL: Well-developed in no acute distress. NECK: Supple. No JVD or thyromegaly LUNGS: Respirations even and unlabored. Lungs diminished HEART: Regular rate and rhythm. S1 and S2 heard. Systolic murmur. EXTREMITIES: Normal range of motion. No clubbing or cyanosis. Peripheral pulses intact. No lower extremity edema ASSESSMENT: Possible pneumonia Acute on chronic heart failure, with preserved ejection fraction, mildly reduced, 40-45% Persistent atrial fibrillation, with history of Watchman procedure Mild mitral regurgitation, [id number] tricuspid regurgitation, moderate aortic stenosis Severe pulmonary per tension History of pacemaker implantation PLAN: Continue current cardiac medications Patient would benefit from TEGAN inhibitor on an outpatient basis of blood pressure is able to tolerate. Patient is stable for discharge from a cardiac standpoint Patient to follow up outpatient with his primary restaurant worker out of [facility] Nurse practitioner note has been reviewed by physician. Signing provider agrees with the documented findings, assessment, and plan of care. Objective - Vital Signs Vital signs: Vital Signs Temp 97.7 F 10/26/21 08:00 Pulse 74 10/26/21 08:00 Resp 18 10/26/21 08:00 BP 101/51 10/26/21 08:00 Pulse Ox 98 10/26/21 08:00 FiO2 40 10/21/21 11:14 Intake & Output 10/25/21 10/26/21 10/26/21 18:59 06:59 18:59 Intake Total 730 1020 Output Total 800 2350 Balance -70 -1330 Weight 85 kg Intake: IV 10 20 Invasive Line 2 10 20 Oral 720 1000 Output: Urine 800 2350 - Labs CBC & Chem 7: 10/24/21 08:55 10/25/21 08:45 Labs: Microbiology - Last 24 Hours (Table) 10/20/21 23:19 Blood Culture - Preliminary Blood No Growth after 120 hours 10/20/21 23:35 Blood Culture - Preliminary Blood No Growth after 120 hours 10/24/21 11:32 Gram Stain - Preliminary Sputum Sputum Culture - Preliminary
[2021-10-26 15:42] VITALS: BP 92/53; PULSE 76; TEMP 97.9
--- NOTE | 2021-10-26 15:58 | P.DS ---
Providers Date of admission: 10/21/21 06:11 Expected date of discharge: 10/26/21 Attending physician: Jairo Bryan MD Consults: 10/21/21 06:11 Consult Physician Routine Consulting Provider: Syed Monge Consult Reason/Comments: CHF exacerbation Do you want consulting provider notified?: Yes 10/21/21 11:53 Consult Physician Routine Consulting Provider: Shayan Saez Consult Reason/Comments: Leukocytosis Do you want consulting provider notified?: Yes Primary care physician: Stated None Hospital Course: Final diagnosis -Acute on chronic exacerbation CHF, preserved EF, mildly reduced at 40-45% -Possible underlying pneumonia -Cardiac arrhythmia; atrial fibrillation versus MAT; patient has history of atrial fibrillation -Marked leukocytosis; likely related to possible pneumonia, improved -Hypertension -Hyperlipidemia -COPD; not in exacerbation -Gout history -Depression/insomnia Discharge disposition Patient is being discharged in a stable condition with guarded prognosis to [facility] for continued PT/OT therapy. Patient will follow-up with Dr. Amaya in the outpatient setting upon discharge. Patient is to continue with Ceftin 500mg twice daily for the next 1 week along with Diflucan daily for 1 week. Patient has been instructed to follow-up with his used building materials yard worker out of [place] on discharge. Total time taken is greater than 35 minutes. Hospital course This is a 81-year-old male who was recently admitted with increasing shortness of breath found to have an acute exacerbation of heart failure with possible pneumonia and was being closely monitored. Cardiology following and patient was maintained on IV Lasix along with infectious disease following and blood cultures remain negative. 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 Patient's cardiology is out of [place] and cardiology recommends him following up with them once discharged from [facility]. Patient continued with extreme weakness and has been evaluated by physical therapy recommending [facility] for continued PT/OT therapy. Currently no reports of chest pain, shortness of breath, or palpitations. Patient is afebrile. No reports of nausea or vomiting and patient is tolerating diet. Patient will be discharged to [facility] today. Guarded prognos is. Physical exam: GENERAL: The patient is alert and oriented x3, not in any acute distress. Well developed, well nourished. HEENT: Pupils are round and equally reacting to light. EOMI. No scleral icterus. No conjunctival pallor. Normocephalic, atraumatic. No pharyngeal erythema. No thyromegaly. CARDIOVASCULAR: S1 and S2 muffled, irregular PULMONARY: diminished breath sounds bilaterally with some scattered rhonchi noted ABDOMEN: Soft, nontender, nondistended, normoactive bowel sounds. No palpable organomegaly. MUSCULOSKELETAL: No joint swelling or deformity. EXTREMITIES: No cyanosis, clubbing, or pedal edema. NEUROLOGICAL: Gross neurological examination did not reveal any focal deficits. diffuse weakness SKIN: No rashes. Please refer to medication reconciliation sheet for a list of medications. The impression and plan of care has been dictated by Michelle Eaton, Nurse Practitioner as directed. Dr. Amanda MD I have performed a history and examination and MDM of this patient, discussed the same with the dictator, and agree with the dictator's assessment and plan as written ,documented as a scribe. Based on total visit time, I have performed more than 50% of the visit. Patient Condition at Discharge: Stable Plan - Discharge Summary Discharge Rx Participant: Yes New Discharge Prescriptions: New Aspirin 81 mg PO DAILY tab Furosemide [Lasix] 40 mg PO BID@0900,1600 tab Magnesium Oxide [Mag-Ox] 400 mg PO BID tab Famotidine [Pepcid] 20 mg PO BID tab Albuterol Nebulized [Ventolin Nebulized] 2.5 mg INHALATION RT-QID PRN ml PRN Reason: Shortness Of Breath Sucralfate [Carafate] 1 gm PO ACHS tab cefUROXime axetiL [Ceftin] 500 mg PO BID 7 Days #14 tab Fluconazole [Diflucan] 100 mg PO DAILY 7 Days #7 tab Continue Sertraline [Zoloft] 50 mg PO HS Potassium Chloride ER [K-Dur 20] 20 meq PO BID Omeprazole 40 mg PO BID Atorvastatin [Lipitor] 80 mg PO HS allopurinoL [Zyloprim] 300 mg PO DAILY Clopidogrel [Plavix] 75 mg PO DAILY Vit C/E/Zn/Coppr/Lutein/Zeaxan [Preservision Areds 2 Softgel] 1 cap PO BID QUEtiapine [SEROquel] 12.5 mg PO HS Metoprolol Succinate [Metoprolol Succinate ER] 25 mg PO DAILY Discontinued Furosemide [Lasix] 80 mg PO DAILY Discharge Medication List Atorvastatin [Lipitor] 80 mg PO HS 09/12/18 [History] Omeprazole 40 mg PO BID 09/12/18 [History] Potassium Chloride ER [K-Dur 20] 20 meq PO BID 09/12/18 [History] Sertraline [Zoloft] 50 mg PO HS 09/12/18 [History] allopurinoL [Zyloprim] 300 mg PO DAILY 09/12/18 [History] Clopidogrel [Plavix] 75 mg PO DAILY 10/21/21 [History] Metoprolol Succinate [Metoprolol Succinate ER] 25 mg PO DAILY 10/21/21 [History] QUEtiapine [SEROquel] 12.5 mg PO HS 10/21/21 [History] Vit C/E/Zn/Coppr/Lutein/Zeaxan [Preservision Areds 2 Softgel] 1 cap PO BID 10/21/21 [History] Albuterol Nebulized [Ventolin Nebulized] 2.5 mg INHALATION RT-QID PRN ml 10/26/21 [Rx] Aspirin 81 mg PO DAILY tab 10/26/21 [Rx] Famotidine [Pepcid] 20 mg PO BID tab 10/26/21 [Rx] Fluconazole [Diflucan] 100 mg PO DAILY 7 Days #7 tab 10/26/21 [Rx] Furosemide [Lasix] 40 mg PO BID@0900,1600 tab 10/26/21 [Rx] Magnesium Oxide [Mag-Ox] 400 mg PO BID tab 10/26/21 [Rx] Sucralfate [Carafate] 1 gm PO ACHS tab 10/26/21 [Rx] cefUROXime axetiL [Ceftin] 500 mg PO BID 7 Days #14 tab 10/26/21 [Rx] Follow up Appointment(s)/Referral(s): None,Stated [Primary Care Provider] - 1-2 days Tyrese Amaya MD [STAFF PHYSICIAN] - 1-2 Days [facility], [NON-STAFF] - 1 Week Activity/Diet/Wound Care/Special Instructions: Patient is going to [facility] Activity as tolerated Recommend continue with Ceftin 500 mg twice daily for 1 week Continue Diflucan daily for 1 week Recommend outpatient follow-up with your used building materials yard worker out of [place] Recommend heart healthy diet Discharge Disposition: TRANSFER TO SNF/ECF
== END 2021-10-26 17:27 | DRG 291 ==
LOC: EC 23:25 → 3SCARD 10-21 06:11
PROVIDERS: ADMIT Internal Medicine; ATTEND Internal Medicine
PROC: 5A09357 Assistance with Respiratory Ventilation, Less than 24 Consecutive Hours, Continuous Positive Airway Pressure (ICD-10-PCS; principal; 2021-10-21)
DX: I11.0 Hypertensive heart disease with heart failure (principal); I50.33 Acute on chronic diastolic (congestive) heart failure; J18.9 Pneumonia, unspecified organism; J44.0 Chronic obstructive pulmonary disease with (acute) lower respiratory infection; I48.21 Permanent atrial fibrillation; I47.1 Supraventricular tachycardia; Z20.822 Contact with and (suspected) exposure to COVID-19; R01.1 Cardiac murmur, unspecified; I25.10 Atherosclerotic heart disease of native coronary artery without angina pectoris; I27.20 Pulmonary hypertension, unspecified; I08.3 Combined rheumatic disorders of mitral, aortic and tricuspid valves; E78.5 Hyperlipidemia, unspecified; K21.9 Gastro-esophageal reflux disease without esophagitis; M10.9 Gout, unspecified; G47.00 Insomnia, unspecified; F32.A Depression, unspecified; Z95.810 Presence of automatic (implantable) cardiac defibrillator; Z88.6 Allergy status to analgesic agent; Z79.82 Long term (current) use of aspirin; Z79.899 Other long term (current) drug therapy; Z79.01 Long term (current) use of anticoagulants; Z79.02 Long term (current) use of antithrombotics/antiplatelets; Z87.01 Personal history of pneumonia (recurrent); Z86.74 Personal history of sudden cardiac arrest; Z83.3 Family history of diabetes mellitus; Z88.5 Allergy status to narcotic agent
CPT/HCPCS: 36415; 71045; 80048; 80053; 81001; 83605; 83880; 84145; 84484; 85025; 85610; 85730; 86140; 87040; 87070; 87205; 87635; 93005; 93306; 94660; 96365; 96375; 99285